=== PATIENT | female | born 1950 | race Caucasian/White ===

== ENCOUNTER 2018-02-21 09:20 | Outpatient (CLI) | payer MEDICARE, BC, SELFPAY ==
[2018-02-21 11:06] LABS: Abs Immature Grans 0.01 k/cumm (0.0-0.09); Absolute Basophil Count 0.03 k/cumm (0.0-0.2); Absolute Eosinophil Count 0.14 k/cumm (0.0-0.7); Absolute Lymphocyte Count 2.48 k/cumm (1.2-3.4); Absolute Monocyte Count 0.56 k/cumm (0.11-0.7); Absolute Neutrophil Count 3.13 k/cumm (1.2-6.7); Basophils % 0.5; Eosinophils % 2.2; Immature Grans % 0.2; Lymphocytes % 39.1; Mean Corp. HGB Concentration 33.3 g/dL (32.0-36.0); Mean Corpuscular Hemoglobin 30.4 pg (27.0-33.0); Mean Corpuscular Volume 91.1 fL (80-95); Mean Platelet Volume 9.4 fL (8.0-11.0); Monocytes % 8.8; Neutrophils % 49.2; Platelet Count 205 x1000/uL (130-400); RBC 4.61 m/cumm (4.00-5.20); RBC Distribution Width 13.2 % (11.7-14.6); White Blood Cell Count 6.35 k/cumm (4.4-10.8)
== END 2018-02-21 09:40 ==
PROVIDERS: PCP Internal Medicine; Visit Provider Internal Medicine
DX: R10.9 Unspecified abdominal pain (principal)
CPT/HCPCS: 36415; 85025

== ENCOUNTER 2018-03-12 11:44 | Emergency (ER) | payer MEDICARE, BC, SELFPAY ==
[2018-03-12 11:52] VITALS: BP 130/64; PULSE 54; RESP 16; TEMP 37.1; O2SAT 96
--- NOTE | 2018-03-12 12:00 | DI.COMBO_ITS ---
SYMPTOM/DIAGNOSIS: TRAUMA, FELL, PAIN, SWELLING, HIT HEAD NONCONTRAST HEAD CT: No priors for comparison. The ventricles and sulci are consistent with the patient's age. There are areas of decreased attenuation in the white matter likely reflecting small vessel ischemic disease. No intracranial hemorrhage, infarct, midline shift or mass effect is identified. The ventricles are intact. The basilar cisterns are patent. No evidence of a calvarial fracture is seen. The visualized paranasal sinuses are clear. The mastoid air cells are well pneumatized. IMPRESSION: No acute intracranial process. CERVICAL SPINE CT: Multiple contiguous axial images of the cervical spine were obtained. Sagittal and coronal reformatted images were evaluated on the Siem[employer] work station. There are no priors for comparison. There is reversal of the normal cervical lordosis present. There is grade I spondylolisthesis of C 3 on C 4 and and C 4 on C 5. No acute fractures or subluxations are seen. Moderate degenerative changes are present throughout the cervical spine, particularly at C 4-5 and C 6 -7. 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 Multi level central spinal canal neural foraminal stenosis is seen. The prevertebral soft tissues are unremarkable. The bones are osteopenic. IMPRESSION: No acute fracture or subluxation in the cervical spine. Multi level cervical spondylosis. RIGHT KNEE: Four views. Comparison is made with 10/27/12. In the interim, the patient has had a right total knee replacement. The orthopedic hardware appears in good position. No acute fracture or dislocation is seen. Dystrophic calcifications are seen in the suprapatellar region. The soft tissues are otherwise unremarkable. IMPRESSION: No acute fracture or dislocation. Stable right TKR.
--- NOTE | 2018-03-12 12:02 | W.ED.GENAD ---
Discharge Plan Disposition Patient Disposition: HOME Condition: Fair Discharge Details Chief Complaint: Trauma Clinical Impression: Contusion of knee, Head injury Reason For Visit: fall/ hit head ,right knee Primary Care Provider: Angie Browne ED Provider: Mindy Velez Home Meds and New Rx's Prescriptions: Continue losartan 25 mg tablet 25 mg PO DAILY Qty: 90 RF: 0 acetaminophen 500 mg tablet 1,000 mg PO TID PRNRF: 0 aspirin 325 mg tablet 325 mg PO DAILY RF: 0 atorvastatin 40 mg tablet 40 mg PO HS RF: 0 cholecalciferol (vitamin D3) 1,000 unit capsule 1,000 unit PO DAILY RF: 0 duloxetine 60 mg capsule,delayed release(DR/EC) 60 mg PO DAILY RF: 0 guanfacine 1 mg tablet 1 mg PO HS PRNRF: 0 lamotrigine 200 mg tablet 200 mg PO .AM RF: 0 lamotrigine 200 mg tablet 100 mg PO HS RF: 0 levothyroxine 75 mcg tablet 75 mcg PO DAILY RF: 0 losartan 25 mg tablet 25 mg PO DAILY RF: 0 metoprolol tartrate 25 mg tablet 25 mg PO BID RF: 0 omeprazole 40 mg capsule,delayed release(DR/EC) 40 mg PO .AM RF: 0 [id number]-Am-tlxj-minerals [Women's One Daily] 1 EACH tablet 1 ea PO DAILY RF: 0 naproxen sodium [Aleve] 220 mg Capsule 1 tab PO PRN PRNRF: 0 No Action BiPAP RF: 0 Discharge Instructions Instructions: Head Injury (ED), Contusion in Adults (ED) Additional Instructions: Encourage rest, ice, elevation. Tylenol and/or ibuprofen as needed for discomfort. Please continue with Jad wrap to help with swelling. If your pain persist over the next week, please follow-up with Dr. Hfofman. In regard to your headache, please use Tylenol and/or ibuprofen as needed for discomfort. However, if you develop visual changes, vomiting, confusion, altered mental status, increased pain or other new/worsening symptoms please seek care urgently once again. Please follow up with primary care as needed if pain persists over the next week. Referrals: Jayant Vasques [ NON-[facility] STAFF PHYSICIAN] - Angie Bronwe MD [Primary Care Provider] - Medical Decision Making Patient is 67-year-old female presents today, accompanied by friend, with chief complaint of head injury and right knee pain. She reports that prior to arrival, she was walking her dog when the dog pulled forward. Landed directly on her right knee. Patient has notable ecchymosis and soft tissue swelling of the prepatellar area. Full range of motion, normal straight leg raise. Unable to palpate any deformity. She has fairly diffuse discomfort of the joint line but she reports this is typical and is unchanged since TKA. Patient had TKA approximately 3 years ago. Reports that she did heal well from this. Is not had continued discomfort. Also endorses head injury. Reports that she fell forward and struck the anterior aspect of her head. Denies any loss of consciousness. No visual change. No nausea or vomiting. States that her pain at this time is a 7 out of 10. Reports that the pain in the anterior aspect of her forehead radiates around and down the cervical spine. She does have good range of motion of the cervical spine although she does endorse some discomfort with full extension of the neck. Neurologic exam is intact. Patient is declining any analgesics. Patient has history of osteoarthritis, SARA, mitral valve regurgitation, memory loss, hypothyroidism, hyperlipidemia, GERD, hypertension, depression, arteriosclerotic cardiovascular disease. Patient does take aspirin daily. She is not anticoagulated. Obtain CT of the patient's head and neck given the severity of her discomfort and mechanism of injury. We will also obtain x-ray of the right knee. X-ray of the left knee was reviewed by radiologist. They do note the total knee arthroplasty in satisfactory position and alignment. No acute fracture identified. Some calcifications in the suprapatellar soft tissues likely associate with surgery. They do not know any acute abnormalities per CT of the head reviewed by radiologist. Patchy lucencies in the white matter are nonspecific but most suggestive of chronic microvascular ischemic disease. There is no evidence of large acute cortical infarct. No intracranial hemorrhage or extra-axial collection identified. No significant intracranial mass-effect. Ventricles and sulci are mildly prominent, in concordance with mild global atrophy. Bones are normal, no acute fracture. The sinuses and air cells are clear. Mastoid air cells are normal. Soft tissues are unremarkable. Vasculature is noted for intracranial atherosclerotic vascular calcifications. Advised overall no evidence for acute intracranial abnormality CT of the cervical spine reviewed by radiologist. Vertebral body heights are intact. Cervical lordotic curve is preserved. Grade 1 spondylolisthesis at C2-C3 and C4-C5. Alignment is otherwise maintained. Bones appear osteopenic. 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 There appear to be prominent nutrient foramina, rather than fractures through the bilateral C7 transverse process. No acute fracture is identified. The prevertebral soft tissues are not significantly swollen. Visualized lung apices are essentially clear, no apical pneumothorax is identified. There is multilevel spondylosis with very notable osteophytic encroachment of several neural foramina. CT is not optimal for the evaluation of disc, neural foramina or spinal cord canal. No significant spinal stenosis is evident. Chronic productive changes are present about the dens. Median sternotomy wires are present. Overall impression is no acute fracture dislocation. Apparent osteopenia. Spondylosis without significant spinal stenosis events. Discs are intact. The of the cord could be better evaluated by means of MRI if clinically applicable At this point, patient is without neurologic deficit. Range of motion is intact. No pain with palpation. I do not feel that MRI is warranted at this time. However, we did discuss the chronic changes in the next advise follow-up with primary care if pain persists. We discussed new/worsening symptoms when to seek care urgently once again, particularly with regard to the head and neck injury. In regard to the knee discomfort, advised this likely contusion. We did discuss is also over the area of a bursa. I did advise that she follow-up with her orthopedic surgeon if pain persists. She was seek care with urgently once again with any new or worsening symptoms. All of her questions and concerns were addressed and she is in agreement this plan . [facility] Mode of arrival: ambulatory. Date/Time Provider Initiated Documentation: 03/12/18 11:48. Limitations to Documentation: no limitations. Information obtained by: patient. History of Present Illness 67 year old F presents to the emergency department with the chief complaint of right knee pain and headache, described as moderate, with intensity rated at 7. Quality is described as aching, and is localized to the head, neck, right and lower extremity. Patient reports no radiation. Patient started experiencing this minute(s) and it has been constant. Immobilization improves symptom(s), Movement worsens symptoms . Patient notes headaches and rash (ecchymosis to the right anterior knee); denies confusion, chest pain, cough, fever/chills, nausea/vomiting and shortness of breath. Patient did receive the following treatments prior to arrival, none Related Data Home Medications Medication Instructions Recorded Confirmed [id number] 1 ea PO DAILY 07/16/12 03/12/18 [Women's One Daily] Bipap 07/26/14 02/21/18 acetaminophen 500 mg tablet 1,000 mg PO TID PRN tab 12/17/17 03/12/18 aspirin 325 mg tablet 325 mg PO DAILY 12/17/17 03/12/18 atorvastatin 40 mg tablet 40 mg PO HS tab 12/17/17 03/12/18 cholecalciferol (vitamin D3) 1,000 1,000 unit PO DAILY 12/17/17 03/12/18 unit capsule duloxetine 60 mg capsule,delayed 60 mg PO DAILY 12/17/17 03/12/18 release guanfacine 1 mg tablet 1 mg PO HS PRN tab 12/17/17 03/12/18 lamotrigine 200 mg tablet 100 mg PO HS tab 12/17/17 03/12/18 lamotrigine 200 mg tablet 200 mg PO .AM tab 12/17/17 03/12/18 levothyroxine 75 mcg tablet 75 mcg PO DAILY 12/17/17 03/12/18 losartan 25 mg tablet 25 mg PO DAILY 12/17/17 03/12/18 metoprolol tartrate 25 mg tablet 25 mg PO BID 12/17/17 03/12/18 omeprazole 40 mg capsule,delayed 40 mg PO .AM cap 12/17/17 03/12/18 release losartan 25 mg tablet 25 mg PO DAILY #90 tab 12/20/17 03/12/18 naproxen sodium [Aleve] 1 tab PO PRN PRN 03/12/18 03/12/18 Previous Rx's Medication Instructions Recorded losartan 25 mg tablet 25 mg PO DAILY #90 tab 12/20/17 Allergies Allergy/AdvReac Type Severity Reaction Status Date / Time ciprofloxacin HCl Allergy Severe angioedema Unverified 03/12/18 12:11 [From Cipro] lisinopril Allergy Severe angioedema Unverified 03/12/18 12:11 modafinil [From Provigil] Allergy Intermediate increased Unverified 03/12/18 12:11 agitation,hallucinations, insomnia prednisone AdvReac Intermediate SKIN, Unverified 03/12/18 12:11 MUSCLE CRAWL General Stated Complaint: Trauma KAMRON: 3 Review of Systems Constitutional Reports as per HPI, Denies chills, Denies fever(s), Denies headache(s) and Denies weakness Eyes Denies blurry vision and Denies change in vision ENT Denies headache(s) Cardiovascular Reports as per HPI, Denies chest pain and Denies dyspnea Respiratory Reports as per HPI, Denies cough and Denies dyspnea Gastrointestinal Reports as per HPI, Denies nausea and Denies vomiting Genitourinary Denies urinary incontinence Musculoskeletal Reports as per HPI, Denies abnormal gait, Reports arthralgias, Reports joint swelling, Denies limited range of motion and Denies tingling Integumentary/Breasts Reports as per HPI, Denies rash and Reports other (ecchymosis to right knee) Neurologic Denies abnormal gait, Denies headache(s), Denies tingling and Denies weakness PFSH ASCVD (arteriosclerotic cardiovascular disease) Essential hypertension GERD (gastroesophageal reflux disease) Hypothyroidism SARA (obstructive sleep apnea) Family History Mother Heart disease Neoplasm Heart valve disorder Father Neoplasm Grandfather Heart disease Grandfather Diabetes Grandmother No problems noted. Grandmother Heart disease Daughter Heart disease Heart valve disorder Daughter Depression Sister No problems noted. Sister No problems noted. Brother No problems noted. Brother Essential hypertension Hepatitis C Brother No problems noted. Son Depression ANKLE REPAIR (~01/2009) Colonoscopy - MAC (09/07/17) Ligation of fallopian tube (~1975) Meniscectomy (~2012) Replacement of total knee joint Valve Replacement Family History Mother Heart disease Neoplasm Heart valve disorder Father Neoplasm Grandfather Heart disease Grandfather Diabetes Grandmother No problems noted. Grandmother Heart disease Daughter Heart disease Heart valve disorder Daughter Depression Sister No problems noted. Sister No problems noted. Brother No problems noted. Brother Essential hypertension Hepatitis C Brother No problems noted. 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 pets and animals: Yes pets and animals: cat(s) and dog(s) frequency: 1-2 times per week duration: 15-30 minutes/day Smoking/Tobacco Use Status: Former Tobacco Use quit date: 04/12/69 alcohol intake: never substance use type: does not use cliff/sabianism: Jehovah'S Witness special cliff needs: No Surgical History ANKLE REPAIR (~01/2009) Colonoscopy - MAC (09/07/17) Ligation of fallopian tube (~1975) Meniscectomy (~2012) Replacement of total knee joint Valve Replacement Social History household members: other details: 2 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 pets and animals: Yes pets and animals: cat(s) and dog(s) frequency: 1-2 times per week duration: 15-30 minutes/day Smoking/Tobacco Use Status: Former Tobacco Use quit date: 04/12/69 alcohol intake: never substance use type: does not use cliff/sabianism: Jehovah'[employer] Witness special cliff needs: No Exam Const General: cooperative, healthy appearing, comfortable, no acute distress, well developed and well groomed Nutritional Appearance: well nourished and overweight Orientation: alert, awake and oriented x3 HENMT Head: normal to inspection, no palpable skull fracture, normocephalic and atraumatic Ears: hearing grossly normal bilaterally, external ears normal and TM's normal bilaterally General nose exam: external nose normal Face and sinus: normal facial exam and face symmetric Mouth: oral mucosae normal, lip normal and tongue normal Eyes General: appearance normal, both eyes and all related structures Alignment and Position: alignment normal Periorbital: periorbital findings normal Eyelids: eyelids normal Conjunctivae: conjunctivae normal Pupils: PERRL and normal by confrontation EOM: EOM intact bilaterally Neck Neck: normal visual inspection, full ROM, no lymphadenopathy, no meningeal signs, trachea midline and supple Chest Chest: normal inspection of the chest, normal palpation of entire chest wall, no crepitus and no localized rib tenderness Resp Effort & Inspection: normal respiratory effort, able to speak in complete sentences and no respiratory distress Auscultation: clear to auscultation bilaterally, no rales, no rhonchi and no wheezes Cardio Rate: regular rate Rhythm: regular rhythm Heart Sounds: S1 normal and S2 normal GI Inspection: normal to inspection Palpation: soft, no hepatosplenomegaly, no guarding, not rigid and nontender Back/Spine/Pelvis Cervical Spine: normal cervical lordosis, cervical ROM normal and cervical spinal tenderness (no pain elicited with palpation but patient does indicate midline as area of pain. Full ROM. Discomfort with full extension) Thoracic/Lumbar Spine: thoracic and lumbar spine normal to inspection and thoraco-lumbar ROM normal Pelvis: no pain with anterior-posterior compression and no pain with lateral compression Skin General skin exam: ecchymosis (over the anterior right knee. Focal area of swelling 7cm x 5cm. ) Trauma: no abrasions and no lacerations Neuro General: alert, awake, oriented x3, gait normal, tone normal, moves all extremities, no meningeal signs, no focal motor deficits and CN's II-XI intact bilaterally Cognition: normal cognition Speech: speech normal Gait: normal gait Motor: muscle tone normal throughout, strength 5/5 throughout, no pronator drift, no movement abnormalities noted and no fasciculations Sensory Exam: no sensory deficits noted Coordination: [id number] test normal, [id number] test normal and rapid alternating movement UE normal Extrem General: no clubbing, cyanosis or edema, no pedal edema, no calf tenderness and normal gait Right lower extremity: full ROM, normal capillary refill, no joint enlargement (soft tissue swelling as above, no effusion palpated) and knee (midline incision, appears to have healed well) Details: tenderness Location: of the pre-patellar area, swelling Location: of the pre-patellar area, normal ROM and knee ligament exam normal; no crepitus; abnormal to inspection (ecchymosis and swelling as above) Psych Appearance: grossly normal and well kempt Mental Status: mental status grossly normal Speech and Movement: speech and movement normal Course Vital Signs Temperature 37.1 C 03/12/18 11:52 Pulse 54 L 03/12/18 11:52 Respiratory Rate 16 03/12/18 11:52 Blood Pressure 130/64 03/12/18 11:52 Pulse Oximetry 96 03/12/18 11:52 Temperature 37.1 C 03/12/18 11:52 Pulse 54 L 03/12/18 11:52 Respiratory Rate 16 03/12/18 11:52 Blood Pressure 130/64 03/12/18 11:52 Pulse Oximetry 96 03/12/18 11:52 Oxygen Delivery Method Room Air 03/12/18 11:52 Oxygen Flow Rate 0 03/12/18 11:52 Pain Level 8 03/12/18 11:52
--- NOTE | 2018-03-12 12:06 | ED.GENADUL_ITS ---
Discharge Plan Disposition Patient Disposition: HOME Condition: Fair Discharge Details Chief Complaint: Trauma Clinical Impression: Contusion of knee, Head injury Reason For Visit: fall/ hit head ,right knee Primary Care Provider: Angie Browne ED Provider: Mindy Velez Home Meds and New Rx's Prescriptions: Continue losartan 25 mg tablet 25 mg PO DAILY Qty: 90 RF: 0 acetaminophen 500 mg tablet 1,000 mg PO TID PRNRF: 0 aspirin 325 mg tablet 325 mg PO DAILY RF: 0 atorvastatin 40 mg tablet 40 mg PO HS RF: 0 cholecalciferol (vitamin D3) 1,000 unit capsule 1,000 unit PO DAILY RF: 0 duloxetine 60 mg capsule,delayed release(DR/EC) 60 mg PO DAILY RF: 0 guanfacine 1 mg tablet 1 mg PO HS PRNRF: 0 lamotrigine 200 mg tablet 200 mg PO .AM RF: 0 lamotrigine 200 mg tablet 100 mg PO HS RF: 0 levothyroxine 75 mcg tablet 75 mcg PO DAILY RF: 0 losartan 25 mg tablet 25 mg PO DAILY RF: 0 metoprolol tartrate 25 mg tablet 25 mg PO BID RF: 0 omeprazole 40 mg capsule,delayed release(DR/EC) 40 mg PO .AM RF: 0 rfwskbzvspwp-Hc-irws-minerals [Women's One Daily] 1 EACH tablet 1 ea PO DAILY RF: 0 naproxen sodium [Aleve] 220 mg Capsule 1 tab PO PRN PRNRF: 0 No Action BiPAP RF: 0 Discharge Instructions Instructions: Head Injury (ED), Contusion in Adults (ED) Additional Instructions: Encourage rest, ice, elevation. Tylenol and/or ibuprofen as needed for discomfort. Please continue with Jad wrap to help with swelling. If your pain persist over the next week, please follow-up with Dr. Hoffman. In regard to your headache, please use Tylenol and/or ibuprofen as needed for discomfort. However, if you develop visual changes, vomiting, confusion, altered mental status, increased pain or other new/worsening symptoms please seek care urgently once again. Please follow up with primary care as needed if pain persists over the next week. Referrals: Jayant Vaqsues [ NON-[facility] STAFF PHYSICIAN] - Angie Browne MD [Primary Care Provider] - Medical Decision Making Patient is 67-year-old female presents today, accompanied by friend, with chief complaint of head injury and right knee pain. She reports that prior to arrival , she was walking her dog when the dog pulled forward. Landed directly on her right knee. Patient has notable ecchymosis and soft tissue swelling of the prepatellar area. Full range of motion, normal straight leg raise. Unable to palpate any deformity. She has fairly diffuse discomfort of the joint line but she reports this is typical and is unchanged since TKA. Patient had TKA approximately 3 years ago. Reports that she did heal well from this. Is not had continued discomfort. Also endorses head injury. Reports that she fell forward and struck the anterior aspect of her head. Denies any loss of consciousness. No visual change. No nausea or vomiting. States that her pain at this time is a 7 out of 10. Reports that the pain in the anterior aspect of her forehead radiates around and down the cervical spine. She does have good range of motion of the cervical spine although she does endorse some discomfort with full extension of the neck. Neurologic exam is intact. Patient is declining any analgesics. Patient has history of osteoarthritis, SARA, mitral valve regurgitation, memory loss, hypothyroidism, hyperlipidemia, GERD, hypertension, depression, arteriosclerotic cardiovascular disease. Patient does take aspirin daily. She is not anticoagulated. Obtain CT of the patient's head and neck given the severity of her discomfort and mechanism of injury. We will also obtain x-ray of the right knee. X-ray of the left knee was reviewed by radiologist. They do note the total knee arthroplasty in satisfactory position and alignment. No acute fracture identified. Some calcifications in the suprapatellar soft tissues likely associate with surgery. They do not know any acute abnormalities per CT of the head reviewed by radiologist. Patchy lucencies in the white matter are nonspecific but most suggestive of chronic microvascular ischemic disease. There is no evidence of large acute cortical infarct. No intracranial hemorrhage or extra-axial collection identified. No significant intracranial mass-effect. Ventricles and sulci are mildly prominent, in concordance with mild global atrophy. Bones are normal, no acute fracture. The sinuses and air cells are clear. Mastoid air cells are normal. Soft tissues are unremarkable. Vasculature is noted for intracranial atherosclerotic vascular calcifications. Advised overall no evidence for acute intracranial abnormality CT of the cervical spine reviewed by radiologist. Vertebral body heights are intact. Cervical lordotic curve is preserved. Grade 1 spondylolisthesis at C2- C3 and C4-C5. Alignment is otherwise maintained. Bones appear osteopenic. 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 There appear to be prominent nutrient foramina, rather than fractures through the bilateral C7 transverse process. No acute fracture is identified. The prevertebral soft tissues are not significantly swollen. Visualized lung apices are essentially clear, no apical pneumothorax is identified. There is multilevel spondylosis with very notable osteophytic encroachment of several neural foramina. CT is not optimal for the evaluation of disc, neural foramina or spinal cord canal. No significant spinal stenosis is evident. Chronic productive changes are present about the dens. Median sternotomy wires are present. Overall impression is no acute fracture dislocation. Apparent osteopenia. Spondylosis without significant spinal stenosis events. Discs are intact. The of the cord could be better evaluated by means of MRI if clinically applicable At this point, patient is without neurologic deficit. Range of motion is intact. No pain with palpation. I do not feel that MRI is warranted at this time. However, we did discuss the chronic changes in the next advise follow-up with primary care if pain persists. We discussed new/worsening symptoms when to seek care urgently once again, particularly with regard to the head and neck injury. In regard to the knee discomfort, advised this likely contusion. We did discuss is also over the area of a bursa. I did advise that she follow-up with her orthopedic surgeon if pain persists. She was seek care with urgently once again with any new or worsening symptoms. All of her questions and concerns were addressed and she is in agreement this plan . [facility] Mode of arrival: ambulatory . Date/Time Provider Initiated Documentation: 03/12/18 11:48 . Limitations to Documentation: no limitations . Information obtained by: patient . History of Present Illness 67 year old F presents to the emergency department with the chief complaint of right knee pain and headache, described as moderate, with intensity rated at 7. Quality is described as aching, and is localized to the head, neck, right and lower extremity. Patient reports no radiation. Patient started experiencing this minute(s) and it has been constant. Immobilization improves symptom(s), Movement worsens symptoms . Patient notes headaches and rash (ecchymosis to the right anterior knee); denies confusion, chest pain, cough, fever/chills, nausea/vomiting and shortness of breath. Patient did receive the following treatments prior to arrival, none Related Data Home Medications Medication Instructions Recorded Confirmed trtyulztrwbo-[id number]-lpna-minerals 1 ea PO DAILY 07/16/12 03/12/18 [Women's One Daily] Bipap 07/26/14 02/21/18 acetaminophen 500 mg tablet 1,000 mg PO TID PRN tab 12/17/17 03/12/18 aspirin 325 mg tablet 325 mg PO DAILY 12/17/17 03/12/18 atorvastatin 40 mg tablet 40 mg PO HS tab 12/17/17 03/12/18 cholecalciferol (vitamin D3) 1,000 1,000 unit PO DAILY 12/17/17 03/12/18 unit capsule duloxetine 60 mg capsule,delayed 60 mg PO DAILY 12/17/17 03/12/18 release guanfacine 1 mg tablet 1 mg PO HS PRN tab 12/17/17 03/12/18 lamotrigine 200 mg tablet 100 mg PO HS tab 12/17/17 03/12/18 lamotrigine 200 mg tablet 200 mg PO .AM tab 12/17/17 03/12/18 levothyroxine 75 mcg tablet 75 mcg PO DAILY 12/17/17 03/12/18 losartan 25 mg tablet 25 mg PO DAILY 12/17/17 03/12/18 metoprolol tartrate 25 mg tablet 25 mg PO BID 12/17/17 03/12/18 omeprazole 40 mg capsule,delayed 40 mg PO .AM cap 12/17/17 03/12/18 release losartan 25 mg tablet 25 mg PO DAILY #90 tab 12/20/17 03/12/18 naproxen sodium [Aleve] 1 tab PO PRN PRN 03/12/18 03/12/18 Previous Rx's Medication Instructions Recorded losartan 25 mg tablet 25 mg PO DAILY #90 tab 12/20/17 Allergies Allergy/AdvReac Type Severity Reaction Status Date / Time ciprofloxacin HCl Allergy Severe angioedema Unverified 03/12/18 12:11 [From Cipro] lisinopril Allergy Severe angioedema Unverified 03/12/18 12:11 modafinil [From Provigil] Allergy Intermediate increased Unverified 03/12/18 12: 11 agitation,hallucinations, insomnia prednisone AdvReac Intermediate SKIN, Unverified 03/12/18 12:11 MUSCLE CRAWL General Stated Complaint: Trauma KAMRON: 3 Review of Systems Constitutional Reports as per HPI, Denies chills, Denies fever(s), Denies headache(s) and Denies weakness Eyes Denies blurry vision and Denies change in vision ENT Denies headache(s) Cardiovascular Reports as per HPI, Denies chest pain and Denies dyspnea Respiratory Reports as per HPI, Denies cough and Denies dyspnea Gastrointestinal Reports as per HPI, Denies nausea and Denies vomiting Genitourinary Denies urinary incontinence Musculoskeletal Reports as per HPI, Denies abnormal gait, Reports arthralgias, Reports joint swelling, Denies limited range of motion and Denies tingling Integumentary/Breasts Reports as per HPI, Denies rash and Reports other (ecchymosis to right knee) Neurologic Denies abnormal gait, Denies headache(s), Denies tingling and Denies weakness PFSH ASCVD (arteriosclerotic cardiovascular disease) Essential hypertension GERD (gastroesophageal reflux disease) Hypothyroidism SARA (obstructive sleep apnea) Family History Mother Heart disease Neoplasm Heart valve disorder Father Neoplasm Grandfather Heart disease Grandfather Diabetes Grandmother No problems noted. Grandmother Heart disease Daughter Heart disease Heart valve disorder Daughter Depression Sister No problems noted. Sister No problems noted. Brother No problems noted. Brother Essential hypertension Hepatitis C Brother No problems noted. Son Depression ANKLE REPAIR (~01/2009) Colonoscopy - MAC (09/07/17) Ligation of fallopian tube (~1975) Meniscectomy (~2012) Replacement of total knee joint Valve Replacement Family History Mother Heart disease Neoplasm Heart valve disorder Father Neoplasm Grandfather Heart disease Grandfather Diabetes Grandmother No problems noted. Grandmother Heart disease Daughter Heart disease Heart valve disorder Daughter Depression Sister No problems noted. Sister No problems noted. Brother No problems noted. Brother Essential hypertension Hepatitis C Brother No problems noted. 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 pets and animals: Yes pets and animals: cat(s) and dog(s) frequency: 1-2 times per week duration: 15-30 minutes/day Smoking/Tobacco Use Status: Former Tobacco Use quit date: 04/12/69 alcohol intake: never substance use type: does not use cliff/jewish: [employer] special cliff needs: No Surgical History ANKLE REPAIR (~01/2009) Colonoscopy - MAC (09/07/17) Ligation of fallopian tube (~1975) Meniscectomy (~2012) Replacement of total knee joint Valve Replacement Social History household members: other details: 2 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 pets and animals: Yes pets and animals: cat(s) and dog(s) frequency: 1-2 times per week duration: 15-30 minutes/day Smoking/Tobacco Use Status: Former Tobacco Use quit date: 04/12/69 alcohol intake: never substance use type: does not use cliff/jewish: [employer] special cliff needs: No Exam Const General: cooperative, healthy appearing, comfortable, no acute distress, well developed and well groomed Nutritional Appearance: well nourished and overweight Orientation: alert, awake and oriented x3 HENMT Head: normal to inspection, no palpable skull fracture, normocephalic and atraumatic Ears: hearing grossly normal bilaterally, external ears normal and TM's normal bilaterally General nose exam: external nose normal Face and sinus: normal facial exam and face symmetric Mouth: oral mucosae normal, lip normal and tongue normal Eyes General: appearance normal, both eyes and all related structures Alignment and Position: alignment normal Periorbital: periorbital findings normal Eyelids: eyelids normal Conjunctivae: conjunctivae normal Pupils: PERRL and normal by confrontation EOM: EOM intact bilaterally Neck Neck: normal visual inspection, full ROM, no lymphadenopathy, no meningeal signs , trachea midline and supple Chest Chest: normal inspection of the chest, normal palpation of entire chest wall, no crepitus and no localized rib tenderness Resp Effort & Inspection: normal respiratory effort, able to speak in complete sentences and no respiratory distress Auscultation: clear to auscultation bilaterally, no rales, no rhonchi and no wheezes Cardio Rate: regular rate Rhythm: regular rhythm Heart Sounds: S1 normal and S2 normal GI Inspection: normal to inspection Palpation: soft, no hepatosplenomegaly, no guarding, not rigid and nontender Back/Spine/Pelvis Cervical Spine: normal cervical lordosis, cervical ROM normal and cervical spinal tenderness (no pain elicited with palpation but patient does indicate midline as area of pain. Full ROM. Discomfort with full extension) Thoracic/Lumbar Spine: thoracic and lumbar spine normal to inspection and thoraco-lumbar ROM normal Pelvis: no pain with anterior-posterior compression and no pain with lateral compression Skin General skin exam: ecchymosis (over the anterior right knee. Focal area of swelling 7cm x 5cm. ) Trauma: no abrasions and no lacerations Neuro General: alert, awake, oriented x3, gait normal, tone normal, moves all extremities, no meningeal signs, no focal motor deficits and CN's II-XI intact bilaterally Cognition: normal cognition Speech: speech normal Gait: normal gait Motor: muscle tone normal throughout, strength 5/5 throughout, no pronator drift , no movement abnormalities noted and no fasciculations Sensory Exam: no sensory deficits noted Coordination: oiuwqw-[id number]-[id number] test normal, [id number] test normal and rapid alternating movement UE normal Extrem General: no clubbing, cyanosis or edema, no pedal edema, no calf tenderness and normal gait Right lower extremity: full ROM, normal capillary refill, no joint enlargement ( soft tissue swelling as above, no effusion palpated) and knee (midline incision , appears to have healed well) Details: tenderness Location: of the pre- patellar area, swelling Location: of the pre-patellar area, normal ROM and knee ligament exam normal; no crepitus; abnormal to inspection (ecchymosis and swelling as above) Psych Appearance: grossly normal and well kempt Mental Status: mental status grossly normal Speech and Movement: speech and movement normal Course Vital Signs Temperature 37.1 C 03/12/18 11:52 Pulse 54 L 03/12/18 11:52 Respiratory Rate 16 03/12/18 11:52 Blood Pressure 130/64 03/12/18 11:52 Pulse Oximetry 96 03/12/18 11:52 Temperature 37.1 C 03/12/18 11:52 Pulse 54 L 03/12/18 11:52 Respiratory Rate 16 03/12/18 11:52 Blood Pressure 130/64 03/12/18 11:52 Pulse Oximetry 96 03/12/18 11:52 Oxygen Delivery Method Room Air 03/12/18 11:52 Oxygen Flow Rate 0 03/12/18 11:52 Pain Level 8 03/12/18 11:52
--- NOTE | 2018-03-12 12:59 | DI.VRAD_ITS ---
EXAM: CT Head Without Intravenous Contrast EXAM DATE/TIME: 03/12/2018 12:02 PM CLINICAL HISTORY: 67 years old, female; Injury or trauma; Injury history: Fall; Initial encounter; Swelling (edema); Bleeding/hemorrhage; Injury date: 03/12/2018 TECHNIQUE: Axial computed tomography images of the head/brain without intravenous contrast. All CT scans at this facility use at least one of these dose optimization techniques: automated exposure control; mA and/or kV adjustment per patient size (includes targeted exams where dose is matched to clinical indication); or iterative reconstruction. Coronal and sagittal reformatted images were created and reviewed. COMPARISON: No relevant prior studies available. FINDINGS: Brain: Patchy lucencies in the white matter are nonspecific but most suggestive of chronic microvascular ischemic disease. There is no evidence for large acute cortical infarct. No intracranial hemorrhage or extraaxial collection is identified. There is no significant intracranial mass effect. Ventricles: The ventricles and sulci are mildly prominent, in concordance with mild global atrophy. Bones/joints: Normal. No acute fracture. Sinuses: The visualized paranasal sinuses and air cells are clear. Mastoid air cells: Normal as visualized. No mastoid effusion. Soft tissues: Unremarkable. Vasculature: Intracranial atherosclerotic vascular calcifications are noted. IMPRESSION: No CT evidence for acute intracranial abnormality. EXAM: CT Cervical Spine Without Intravenous Contrast EXAM DATE/TIME: 03/12/2018 12:02 PM CLINICAL HISTORY: 67 years old, female; Injury or trauma; Injury history: Fall; Initial encounter; Swelling (edema); Bleeding/hemorrhage; Injury date: 03/12/2018 TECHNIQUE: Axial computed tomography images of the cervical spine without intravenous contrast. All CT scans at this facility use at least one of these dose optimization techniques: automated exposure control; mA and/or kV adjustment per patient size (includes targeted exams where dose is matched to clinical indication); or iterative reconstruction. Coronal and sagittal reformatted images were created and reviewed. COMPARISON: No relevant prior studies available. FINDINGS: Vertebral body heights are intact. The cervical lordotic curve is reversed. There grade 1 spondylolistheses at C2-3 and C4-5. Alignment is otherwise maintained. The bones appear osteopenic. There is partial congenital fusion across the C7-T1 disc space and facet joints. There appear to be prominent nutrient foramina, rather than fractures through the bilateral C7 transverse processes. No acute fracture is identified. The prevertebral soft tissues are not significantly swollen. The visualized lung apices are essentially clear, and no apical pneumothorax is identified. There is multilevel spondylosis with variable osteophytic encroachment of several neural foramina. CT is not optimal for the evaluation of the discs, neural foramina or spinal canal or cord. No significant spinal stenosis is evident. Chronic productive changes are present about the dens. Median sternotomy wires are present. IMPRESSION: 1. No acute fracture or dislocation identified. 2. Apparent osteopenia. 3. Spondylosis without significant spinal stenosis evident. The discs and integrity of the cord could be better evaluated by means of MRI as clinically appropriate. Dictated and Authenticated by: Mina Mcintosh MD. Ordering:MAME YO MD
--- NOTE | 2018-03-12 13:04 | DI.VRAD_ITS ---
EXAM: XR Left Knee, 4 or more Views EXAM DATE/TIME: 03/12/2018 12:02 PM CLINICAL HISTORY: 67 years old, female; Injury or trauma; Fall; Initial encounter; Swelling (edema); Knee; Right; Injury date: 03/12/2018; Injury details: Swelling anteriorly; Prior surgery; Surgery date: 6+ months; Surgery type: Knee replacement TECHNIQUE: XR Left knee 4 or more views. COMPARISON: No relevant prior studies available. FINDINGS: Bones/joints: A total knee arthroplasty is present. It is in satisfactory position and alignment. No acute fracture is identified. Soft tissues: Some calcifications in the suprapatellar soft tissues likely related to the surgery. IMPRESSION: Satisfactory appearance of a total knee arthroplasty. Dictated and Authenticated by: Mina Mcintosh MD. Ordering:MAME YO MD
== END 2018-03-12 13:20 | disposition home or self-care (01) ==
LOC: ER 13:56
PROVIDERS: Emergency Provider Physician Assistant; PCP Internal Medicine
DX: R51 Headache (principal); S80.01XA Contusion of right knee, initial encounter; W01.0XXA Fall on same level from slipping, tripping and stumbling without subsequent striking against object, initial encounter; Z96.651 Presence of right artificial knee joint; I10 Essential (primary) hypertension
CPT/HCPCS: 99284; 70450; 72125; 73564

== ENCOUNTER → 2018-03-15 10:57 | Outpatient (BNVA) | payer MEDICARE, BC, SELFPAY | PROVIDERS: PCP Internal Medicine; Referring Provider Internal Medicine; Visit Provider Surgery | DX: R10.13 Epigastric pain (principal); R14.0 Abdominal distension (gaseous); I10 Essential (primary) hypertension | CPT/HCPCS: 99213 ==

== ENCOUNTER 2018-03-22 09:27 | Day surgery (SDC) | payer MEDICARE, BC, SELFPAY ==
[2018-03-22 09:50] VITALS: BP 143/68; PULSE 56; RESP 16; TEMP 36.6; O2SAT 97
--- NOTE | 2018-03-22 10:12 | W.PM.ENDDOP ---
Date of service: 03/22/18 Time of Service: 11:41 Endoscopy Report DATE OF PROCEDURE: 03/22/18 PRE-OP DIAGNOSIS: Abdominal pain, hx of gastritis and reflux POST-OP DIAGNOSIS: other (duodenitis, gastritis, gastric polyps) PROCEDURE: EGD with biopsies SURGEON: Rae Mcnally ANESTHESIA: MAC (Yaz Paz, [employer]/ ASA 2) ESTIMATED BLOOD LOSS: 3 PATHOLOGY: other (duodenal bx, gastric polyps bx, antrum bx) COMPLICATIONS: None DISPOSITION: same day INDICATIONS: Mrs. Espinosa is a pleasant 67 year old female who was seen in the office for some abdominal pain. She has a history of reflux and is on Omeprazole 40 mg daily. EGD was recommended. Risks, benefits and complications were reviewed and she wished to proceed. No guarantees were given or implied. FINDINGS: Inflammation of the duodenum and stomach. Multiple gastric polyps PROCEDURE DESCRIPTION: After informed consent was obtained the patient was take to the procedure room and placed in a supine position. Monitors were applied and a time out was done. The patients name, date of , procedure type, allergies to medications and metal in their body was reviewed. A bite block was placed and the patient was sedated. Once sedated and comfortable the gastroscope was advanced through the oropharynx which was grossly normal into the esophagus. The proximal and mid-esophagus were normal. In the distal esophagus there was no inflammation noted. The scope was advanced into the stomach and through the pylorus into the 3rd portion of the duodenum. The duodenum was noted to have some inflammation. No ulcer were noted. Biopsies were done. The scope was retracted back into the stomach and biopsies were done to rule out H. pylori. There were no ulcers. The scope was retroflexed. The cardia and fundus were noted to be scattered with multiple polyps. There was no hiatal hernia noted. The scope was retracted back into the esophagus. The Z line was regular. The GE junction was at 38 cm. The scope was removed and the patient was woken up and taken back to [facility] in stable condition. Follow up: I will call with results of the biopsies. I will add Zanatc 300 mg at night and Carafate 1 gm QID for 2 weeks
[2018-03-22] MEDS: Lactated Ringers 1,000 ML 80 ML IV (10:14)
--- NOTE | 2018-03-22 10:15 | PDOC.DSDIS_ITS ---
Discharge Plan Disposition Patient Disposition: HOME Condition: Good Discharge Details Reason For Visit: Abdominal pain Attending Provider: Rae Mcnally Primary Care Provider: Angie Browne Home Meds and New Rx's Prescriptions: New cimetidine 300 mg tablet 300 mg PO HS Qty: 30 RF: 2 sucralfate 1 gram tablet 1 gm PO QID Qty: 60 RF: 0 Continue acetaminophen 500 mg tablet 200 mg PO TID PRNRF: 0 aspirin 325 mg tablet 325 mg PO DAILY RF: 0 atorvastatin 40 mg tablet 40 mg PO HS RF: 0 cholecalciferol (vitamin D3) 1,000 unit capsule 1,000 unit PO DAILY RF: 0 duloxetine 60 mg capsule,delayed release(DR/EC) 60 mg PO DAILY RF: 0 guanfacine 1 mg tablet 0.5 tab PO HS PRNRF: 0 lamotrigine 200 mg tablet 100 mg PO HS RF: 0 levothyroxine 75 mcg tablet 75 mcg PO DAILY RF: 0 losartan 25 mg tablet 25 mg PO DAILY RF: 0 metoprolol tartrate 25 mg tablet 25 mg PO BID RF: 0 omeprazole 40 mg capsule,delayed release(DR/EC) 40 mg PO .AM RF: 0 msmeolmsizoz-Pc-nvij-minerals [Women's One Daily] 1 EACH tablet 1 ea PO DAILY RF: 0 BiPAP RF: 0 naproxen sodium [Aleve] 220 mg Capsule 1 tab PO PRN PRNRF: 0 Discharge Instructions Instructions: Upper Endoscopy (DC), Duodenitis (DC), Gastric Polyps (DC), Gastritis (DC), Diet for Stomach Ulcers and Gastritis (GEN) Additional Instructions: Findings: Inflammation of the stomach and duodenum Follow up: Follow up in 2 weeks Please call if you develop: fevers >101.5 Nausea or Vomiting Abdominal pain that is not transient DAY SURGERY UNIT POST COLONOSCOPY INSTRUCTIONS 1. Because there will be medication in your system for the next 24 hours, you may feel a little sleepy. Your coordination will be affected. Therefore: a. Do not drive or operate dangerous equipment for 24 hours. b. Do not drink alcohol beverages for 24 hours (not even beer). c. Plan to go home and rest for the day. 2. Generally there are no restrictions on your activity after a day or so has gone by, but you may feel a bit fatigued for a few days. 3 After you arrive home you may have a light meal and return to a normal diet as you can tolerate it without feeling sick to your stomach. 4. After surgery, you may feel pain or discomfort. This should be only transient , but if it persists please contact your doctor. 5. If there are any questions regarding the findings of your procedure, please feel free to contact your doctor. 6. If you are unable to contact your doctor with a problem, contact the hospital at [phone]. 7. Continue all your regular medications unless directed otherwise. I understand the above instructions and have no questions. Signature of Patient or Responsible Adult Escort Date/Time Name of Responsible Adult Escort Signature of Nurse Date/Time Activity:: Activity as Tolerated Diet:: low acid Discharge Orders Discharge Orders: Discharge Order (Routine); Ordered 03/22/18 Ordered By: Rae Mcnally DS: Diagnosis Discharge Diagnosis (1) H/O esophagogastroduodenoscopy: Status: Chronic (2) Gastritis and duodenitis: Status: Acute
[2018-03-22] MEDS: Lidocaine 2% Viscous 15 ML CUP (11:30)
--- NOTE | 2018-03-22 11:43 | STOM_PTH ---
PATIENT: Rosalba Espinosa LOC: [facility] U#:[id number] AGE/SX: 67/F ROOM: RE03/22/[address]: Rae Mcnally MD : [id number] BED: DIS: 03/22/2018 SPEC #: [id number] RECD: 03/22/18 13:05 STATUS: [facility] #: [id number] JAEL: 03/22/18 11:[address]: Rae Mcnally DEPT: Surgical Specimen RECD BY: Jennifer Curiel ENTERED: 03/22/18 13:07 SP TYPE: STOMACH OTHR DR: Angie Morales MD Tissues: 1 - BIOPSY BOWEL 2 - STOMACH BIOPSY 3 - STOMACH BIOPSY Procedures: GROSS AND MICRO LEVEL 4 Comments: [id number]
[2018-03-22 12:20] VITALS: BP 125/67; PULSE 55; RESP 16; TEMP 36.5; O2SAT 94
== END 2018-03-22 12:52 | disposition home or self-care (01) ==
PROVIDERS: PCP Internal Medicine; Visit Provider Surgery
PROC: 0DJ68ZZ Inspection of Stomach, Via Natural or Artificial Opening Endoscopic (ICD-10-PCS; CPT 43235; principal; 2018-03-22 11:15)
DX: R10.13 Epigastric pain (principal); K21.9 Gastro-esophageal reflux disease without esophagitis; K31.7 Polyp of stomach and duodenum; K29.80 Duodenitis without bleeding; I10 Essential (primary) hypertension
CPT/HCPCS: 43239; 88305

== ENCOUNTER → 2018-03-29 09:43 | Outpatient (BNVA) | payer MEDICARE, BC, SELFPAY | PROVIDERS: PCP Internal Medicine; Referring Provider Internal Medicine; Visit Provider Surgery | DX: R10.13 Epigastric pain (principal); Z48.815 Encounter for surgical aftercare following surgery on the digestive system; I10 Essential (primary) hypertension | CPT/HCPCS: 99213 ==

== ENCOUNTER 2018-09-19 10:54 | Outpatient (CLI) | payer MEDICARE, BC, SELFPAY ==
[2018-09-19 13:13] LABS: ALT 33 U/L (12-78); AST 21 U/L (15-37); Albumin 3.8 g/dL (3.4-5.0); Alkaline Phosphatase 118 U/L (46-116); Anion Gap 6.3 mmol/L (3-11); BUN 16 mg/dL (7-18); Bilirubin, Total 0.4 mg/dL (0.2-1.0); CO2 32.7 mmol/L (21.0-32.0); CREATININE 0.83 mg/dL (0.55-1.02); Calcium 9.3 mg/dL (8.5-10.1); Chloride 102 mmol/L (98-107); Glucose 106 mg/dL (70-100); Potassium 4.1 mmol/L (3.5-5.1); Sodium 141 mmol/L (136-145); TSH (W/Ref FT4) 1.35 uIU/mL (0.358-3.74); Total Protein 7.1 g/dL (6.4-8.2)
[2018-09-19 14:08] LABS: Iron 64 ug/dL (50-175); Total Iron Binding Capacity 297 ug/dL (250-450); Transferrin Sat 22 % (15-50)
== END 2018-09-19 11:14 ==
PROVIDERS: PCP Internal Medicine; Visit Provider Internal Medicine
DX: D64.9 Anemia, unspecified (principal); I10 Essential (primary) hypertension; E03.9 Hypothyroidism, unspecified
CPT/HCPCS: 36415; 80053; 83540; 83550; 84443

== ENCOUNTER 2018-10-24 09:54 | Emergency (ER) | payer MEDICARE, BC, SELFPAY ==
[2018-10-24] VITALS (9 sets, daily range): BP systolic 124–152; BP diastolic 61–85; PULSE 63–64; RESP 16; TEMP 36.7; O2SAT 95–96
--- NOTE | 2018-10-24 10:06 | ED.GENADUL_ITS ---
Discharge Plan Disposition Patient Disposition: HOME Condition: Stable Discharge Details Chief Complaint: HeadInjury Clinical Impression: Head injury Primary Care Provider: Angie Browne ED Provider: Meg Rees Home Meds and New Rx's Prescriptions: Continued acetaminophen 500 mg tablet 200 mg PO TID PRNRF: 0 aspirin 325 mg tablet 325 mg PO DAILY RF: 0 atorvastatin 40 mg tablet 40 mg PO HS RF: 0 cholecalciferol (vitamin D3) 1,000 unit capsule 1,000 unit PO DAILY RF: 0 duloxetine 60 mg capsule,delayed release(DR/EC) 60 mg PO DAILY RF: 0 guanfacine 1 mg tablet 0.5 tab PO HS PRNRF: 0 lamotrigine 200 mg tablet 100 mg PO HS RF: 0 levothyroxine 75 mcg tablet 75 mcg PO DAILY RF: 0 omeprazole 40 mg capsule,delayed release(DR/EC) 40 mg PO .AM RF: 0 Women's One Daily 1 EACH tablet 1 ea PO DAILY RF: 0 BiPAP RF: 0 losartan 25 mg tablet 25 mg PO DAILY Qty: 90 RF: 3 metoprolol succinate 50 mg tablet extended release 24 hr 50 mg PO DAILY Qty: 60 RF: 4 naproxen sodium [Aleve] 220 mg Capsule 1 tab PO PRN PRNRF: 0 Discharge Instructions Instructions: Concussion (ED), Head Injury (ED) Additional Instructions: Please return immediately to the emergency department if you develop any new or worsening symptoms or if you become otherwise concerned. It is extremely important that you call as soon as possible to make an appointment to be seen in follow-up for this visit by your primary care doctor. Referrals: Angie Browne MD [Primary Care Provider] - Discharge Data Discharge Date/Time-TO BE ENTERED AT DEPARTURE: 10/24/18 13:19 Medical Decision Making Rosalba Espinosa is a 67-year-old woman with history of mitral valve replacement, hyperlipidemia, hypothyroidism, GERD, coronary artery disease on aspirin who presented to the emergency department with headache and neck pain after mechanical fall against a door jam. On exam patient is well and nontoxic appearing. Mild diffuse tenderness of the C-spine. Nonfocal neurologic exam. Hematoma without skin wound to the left temporal scalp. TMs and canals normal bilaterally. Concern for acute intracranial/cervical spine trauma. Exam/history is not consistent with syncope or presyncope as etiology of fall, significant trauma to the thorax/abdomen/\extremities/facial bones. Plan for CT head and C-spine, Tylenol. CT head/C-spine negative per radiology over the phone. Patient reports that her headache has fully resolved since receiving Tylenol. C-spine cleared, Pt with full painless ROM of c-spine, no point TTP on re-examination. I did discuss concussion precautions with the patient. I also had a lengthy discussion with the patient regarding return to emergency department precautions, home care, and importance of outpatient follow-up. Patient verbalized understanding the plan was amenable. Patient was discharged home with clear plan for outpatient follow-up. All questions were answered. Medical Records Medical records reviewed: Yes I reviewed the patient's medical records. Imaging Data Radiologic Study: Attestation: I personally reviewed and interpreted this imaging study as follows: Radiologist's impression: CT BRAIN: Noncontrast. Comparison 03/12/18. The ventricles and sulci are consistent with the patient's age. There are areas of decreased attenuation in the white matter likely reflecting small vessel ischemic disease. No acute territorial infarct, hemorrhage, midline shift or mass effect is identified. The ventricles are intact. The basilar cisterns are patent. The visualized paranasal sinuses are clear as are the mastoid air cells. The calvarium is intact. IMPRESSION: No acute intracranial process. CT SCAN OF THE CERVICAL SPINE: Multiple contiguous axial images of the cervical spine were obtained. Sagittal and coronal reformatted images were evaluated on the Siemens workstation. Comparison is 03/12/18. There is stable alignment of the cervical spine. There is stable reversal of the normal cervical lordosis. Moderately severe degenerative changes are present throughout the cervical spine particularly at the articulation of the first and second vertebral body. No acute fractures or subluxations are present. The prevertebral soft tissues are unremarkable. The bones appear osteopenic. The lung apices are clear. IMPRESSION: No acute fractures or subluxations in the cervical spine. The findings were discussed with the emergency department on the date of the examination. HPI General Mode of arrival: ambulatory . Date/Time Provider Initiated Documentation: 10/24/18 10:06 . Limitations to Documentation: no limitations . Information obtained by: patient, family, RN notes reviewed and old records reviewed . HPI Narrative: Rosalba Espinosa is a 67 y/o woman with history of mitral valve replacement, hyperlipidemia, hypothyroidism, GERD, hypertension, coronary artery disease taking aspirin presenting to the emergency department with head injury. Patient is accompanied by her son who also provides a history. Patient reports that she was at home, when she tripped and fell forward, hitting the left side of her head against a door jam. She did not fall to the ground. Patient reports that she had no loss of consciousness and remembers the event in its entirety. Patient reports that she had no preceding symptoms, including palpitations/chest pain/shortness of breath. Patient states emphatically that she tripped causing the fall. She and her son reports that she has had frequent issues with tripping and falling in the past, and this is not unusual for her. Patient currently reports headache and some pain in her neck. She denies any other pain, numbness/weakness the extremities, skin wound, other injury, vomiting. Related Data Home Medications Medication Instructions Recorded Confirmed Women's One Daily 1 ea PO DAILY 07/16/12 11/02/18 Bipap 07/26/14 11/02/18 acetaminophen 500 mg tablet 200 mg PO TID PRN tab 12/17/17 11/02/18 aspirin 325 mg tablet 325 mg PO DAILY 12/17/17 11/02/18 atorvastatin 40 mg tablet 40 mg PO HS tab 12/17/17 11/02/18 cholecalciferol (vitamin D3) 1,000 1,000 unit PO DAILY 12/17/17 11/02/18 unit capsule duloxetine 60 mg capsule,delayed 60 mg PO DAILY 12/17/17 11/02/18 release guanfacine 1 mg tablet 0.5 tab PO HS PRN tab 12/17/17 11/02/18 lamotrigine 200 mg tablet 100 mg PO HS tab 12/17/17 11/02/18 levothyroxine 75 mcg tablet 75 mcg PO DAILY 12/17/17 11/02/18 omeprazole 40 mg capsule,delayed 40 mg PO .AM cap 12/17/17 11/02/18 release naproxen sodium [Aleve] 1 tab PO PRN PRN 03/12/18 11/02/18 losartan 25 mg tablet 25 mg PO DAILY #90 tab 04/08/18 11/02/18 metoprolol succinate 50 mg 50 mg PO DAILY #60 tab 06/07/18 11/02/18 tablet,extended release 24 hr Previous Rx's Medication Instructions Recorded losartan 25 mg tablet 25 mg PO DAILY #90 tab 04/08/18 metoprolol succinate 50 mg 50 mg PO DAILY #60 tab 06/07/18 tablet,extended release 24 hr Allergies Allergy/AdvReac Type Severity Reaction Status Date / Time ciprofloxacin HCl Allergy Severe angioedema Unverified 11/02/18 08:50 [From Cipro] lisinopril Allergy Severe angioedema Unverified 11/02/18 08:50 modafinil [From Provigil] AdvReac Intermediate increased Unverified 11/02/18 08:52 agitation,hallucinations, insomnia prednisone AdvReac Intermediate SKIN, Unverified 11/02/18 08:50 MUSCLE CRAWL General Stated Complaint: HeadInjury KAMRON: 4 Review of Systems Review of Systems Constitutional: denies fevers Eyes: denies eye pain ENT: denies facial pain, dental pain, sore throat Cardiovascular: denies chest pain, edema, palpitations Respiratory: denies SOB, cough GI: denies abdominal pain, vomiting, diarrhea : denies flank pain MSK: reports neck pain, denies back pain, arthralgias, myalgias Skin: denies rash Neuro: reports headache, denies numbness, weakness PFSH Medical History Anemia (Chronic) ASCVD (arteriosclerotic cardiovascular disease) Essential hypertension GERD (gastroesophageal reflux disease) Hypothyroidism SARA (obstructive sleep apnea) Surgical History (Updated 09/14/18 @ 08:48 by Ferdinand Barajas) ANKLE REPAIR (~01/2009) Colonoscopy - MAC (09/07/17) Ligation of fallopian tube (~1975) Meniscectomy (~2012) Replacement of total knee joint Valve Replacement Social History Smoking/Tobacco Use Status: Former Tobacco Use Quit Date: 04/12/69 Alcohol Intake: never Drug use: Never Substance use type: does not use Household members: other Details: 2 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 Pets and animals: Yes Pets and animals: cat(s) and dog(s) Duration: 15-30 minutes/day Frequency: 1-2 times per week Trina/Pentecostal: Sikh Special trina needs: No Do you feel safe at home: Yes Do you feel safe in your relationship?: Yes Exam Narrative Exam Narrative: Constitutional: well and [id number], pleasant, conversing normally HENT: head atraumatic/normocephalic/normal inspection, mucous membranes moist Eyes: conjunctiva normal, sclera normal, pupils 3mm b/l ERRLA, normal EOM Neck: no stridor, normal ROM, trachea midline, mild diffuse cervical spinal and paraspinal TTP without focality, no crepitus or deformity Chest: normal inspection Resp: normal work of breathing, LCTAB Cardio: normal rate, normal rhythm GI: abdomen soft, non-tender, non-distended Back: normal inspection, no rash Skin: warm, dry, normal color, no rash Neuro: alert, not altered, claim analyst 2-12 intact, motor 5/5 throughout, normal tone Ext: no edema Psych: normal mood, normal affect, normal behavior Course Vital Signs Temperature 36.7 C 10/24/18 09:56 Pulse 64 10/24/18 09:56 Respiratory Rate 16 10/24/18 09:56 Blood Pressure 152/84 H 10/24/18 09:56 Pulse Oximetry 95 10/24/18 09:56 Temperature 36.7 C 10/24/18 09:56 Temperature Source Temporal Artery Scan 10/24/18 09:56 Pulse 64 10/24/18 09:56 Respiratory Rate 16 10/24/18 09:56 Respiratory Effort Non-Labored 10/24/18 09:58 Blood Pressure 152/84 H 10/24/18 09:56 Blood Pressure Position Sitting 10/24/18 09:56 Pulse Oximetry 95 10/24/18 09:56 Oxygen Delivery Method Room Air 10/24/18 09:56 Oxygen Flow Rate 0 10/24/18 09:56 Pain Level 7 10/24/18 09:56
[2018-10-24] MEDS: Acetaminophen 500 MG TAB 1000 MG PO (11:36)
--- NOTE | 2018-10-24 12:07 | DI.CT_ITS ---
SYMPTOMS/DIAGNOSIS: TRAUMA, HEADACHE CT BRAIN: Noncontrast. Comparison 03/12/18. The ventricles and sulci are consistent with the patient's age. There are areas of decreased attenuation in the white matter likely reflecting small vessel ischemic disease. No acute territorial infarct, hemorrhage, midline shift or mass effect is identified. The ventricles are intact. The basilar cisterns are patent. The visualized paranasal sinuses are clear as are the mastoid air cells. The calvarium is intact. IMPRESSION: No acute intracranial process. CT SCAN OF THE CERVICAL SPINE: Multiple contiguous axial images of the cervical spine were obtained. Sagittal and coronal reformatted images were evaluated on the Siemens workstation. Comparison is 03/12/18. There is stable alignment of the cervical spine. There is stable reversal of the normal cervical lordosis. Moderately severe degenerative changes are present throughout the cervical spine particularly at the articulation of the first and second vertebral body. No acute fractures or subluxations are present. The prevertebral soft tissues are unremarkable. The bones appear osteopenic. The lung apices are clear. IMPRESSION: No acute fractures or subluxations in the cervical spine. The findings were discussed with the emergency department on the date of the examination.
== END 2018-10-24 13:19 | disposition home or self-care (01) ==
PROVIDERS: Emergency Provider Student in an Organized Health Care Education/Training Program; PCP Internal Medicine
DX: M54.2 Cervicalgia; S00.03XA Contusion of scalp, initial encounter; W01.198A Fall on same level from slipping, tripping and stumbling with subsequent striking against other object, initial encounter; I10 Essential (primary) hypertension
CPT/HCPCS: 99284; 70450; 72125

== ENCOUNTER 2019-12-05 22:05 | Outpatient (REF) | payer MEDICARE, BC, SELFPAY ==
[2019-12-05 21:06] LABS: CREATININE 0.91 mg/dL (0.55-1.02); Calculated LDL 87 mg/dL (<100); Cholesterol 176 mg/dL (<200); HDL Cholesterol 44 mg/dL (40-60); Potassium 4.1 mmol/L (3.5-5.1); TSH 1.57 uIU/mL (0.36-3.74); Triglyceride 227 mg/dL (<150)
== END 2019-12-05 22:25 ==
LOC: NCHCN 22:05
PROVIDERS: PCP Nurse Practitioner; Visit Provider Nurse Practitioner
DX: E03.9 Hypothyroidism, unspecified (principal); I10 Essential (primary) hypertension; I25.10 Atherosclerotic heart disease of native coronary artery without angina pectoris; F32.9 Major depressive disorder, single episode, unspecified
CPT/HCPCS: 80061; 82565; 84132; 84443

== ENCOUNTER 2020-03-14 09:04 | Outpatient (CLI) | payer MEDICARE, BC, SELFPAY ==
--- NOTE | 2020-03-14 08:30 | DI.RAD_ITS ---
EXAM: XR SHOULDER LT COMPLETE 2+V CLINICAL HISTORY: eval L shoudler pain. TECHNIQUE: 2D digital imaging was performed. COMPARISON: No exams were available for comparison FINDINGS: There is no evidence of fracture nor dislocation no abnormal soft tissue calcifications. No os acrom iale. No osseous lesions. No joint space narrowing. Sternotomy wires incidentally noted. IMPRESSION: No significant radiographic findings in the left shoulder. DATA REPOSITORY: RADIATION DOSE DELIVERED:
== END 2020-03-14 09:24 ==
PROVIDERS: PCP Nurse Practitioner; Referring Provider Physical Therapist; Visit Provider Student in an Organized Health Care Education/Training Program
DX: M25.512 Pain in left shoulder (principal); M75.82 Other shoulder lesions, left shoulder
CPT/HCPCS: 99214; 73030

== ENCOUNTER 2020-03-27 00:25 | Outpatient (CLI) | payer MEDICARE, BC, SELFPAY ==
--- NOTE | 2020-03-27 08:00 | DI.MRI_ITS ---
EXAM: MR UPPER JOINT LT WO CLINICAL HISTORY: LT ROTATOR CUFF TEAR,SHOULDER PAIN,M75.102 TECHNIQUE: Multiplanar multisequence MRI of the shoulder was performed. COMPARISON: MR MRI R UPPER JOINT WO CONT from 10/03/2015 CR XR SHOULDER LT COMPLETE 2+V from 03/14/2020 FINDINGS: MARROW:There is no evidence of fracture, Hill-Sachs deformity, nor ominous osseous lesions. ROTATOR CUFF MECHANISM: AC JOINT/ACROMIUM: There are minimal degenerative changes in the acromioclavicular joint. Minimal im pingement at this level. No downgoing osteophytes. Mildly downsloping acromion.. There is no evidence of os acromiale. Supraspinatus: Tendinitis signal.. There is some fluid in the subacromial bursa. There is a small are a which exhibits fluid signal through the entire tendon thickness above the greater tuberosity which is probably small area of full-thickness tearing. There is no retraction of the musculotendinous junc tion. There is mild muscle atrophy.. Infraspinatus: Insertional tendinitis. No full-thickness tear. Mild atrophy.. Teres Minor: Intact. No evidence of tear nor muscle atrophy. Subscapularis/anterior cuff: There is some tendinitis signal in the most superior of the multipennate insertional fibers of the subscapularis but no full thickness tear. BICEPS TENDON: Attenuated and appears perched on the lesser tuberosity. Partial tearing. No tenosynovitis. LABRUM: Superior labrum is intact. Anterior labrum intact. Posterior labrum appears intact. Inferi or labrum intact. No evidence of paralabral cyst. GLENOHUMERAL JOINT: No joint effusion nor obvious loose intra-articular bodies. No chondral defects. No osteophytes. Mild degenerative changes. No degenerative subarticular cysts. No evidence of cap sular tear. The inferior glenohumeral ligament is intact. QUADRILATERAL SPACE: No evidence of mass in the region of the axillary nerve and dorsal circumflex hu meral vessels. Visualized triceps muscle at this level appears unremarkable. IMPRESSION: 1. Partial thickness tearing of the supraspinatus with possible small area of full-thickness tear and some fluid in the subacromial bursa is seen. There is no retraction musculotendinous junction. 2. Insertional tendinitis versus articular side mild surface tearing of infraspinatus. No retraction . There is some mild muscle atrophy of both these muscles. 3. Tendinitis signal with in the upper aspect of the subscapularis but no high-grade tear. 4. No labral tears but there is attenuation and slight offset of the intra-articular aspect of the b iceps tendon which appears perched upon the lesser tuberosity. There is no evidence of SLAP-type tea r. Also no evidence of paralabral cyst. 5. Mild osteoarthritic degenerative changes in the glenohumeral joint. No significant joint effusio n. No loose intra-articular body. DATA REPOSITORY:
== END 2020-03-27 00:45 ==
PROVIDERS: PCP Nurse Practitioner; Visit Provider Student in an Organized Health Care Education/Training Program
DX: M75.112 Incomplete rotator cuff tear or rupture of left shoulder, not specified as traumatic (principal); M19.012 Primary osteoarthritis, left shoulder; M75.102 Unspecified rotator cuff tear or rupture of left shoulder, not specified as traumatic; M75.82 Other shoulder lesions, left shoulder
CPT/HCPCS: 73221

== ENCOUNTER 2020-05-03 02:20 | Outpatient (CLI) | payer MEDICARE, BC, SELFPAY ==
[2020-05-05 10:32] LABS: COVID-19 RT-PCR Result NEGATIVE (Negative)
== END 2020-05-03 02:40 ==
PROVIDERS: PCP Nurse Practitioner; Visit Provider Student in an Organized Health Care Education/Training Program
DX: Z11.52 Encounter for screening for COVID-19 (principal); Z01.818 Encounter for other preprocedural examination
CPT/HCPCS: U0003

== ENCOUNTER 2020-05-08 08:36 | Day surgery (SDC) | payer MEDICARE, BC, SELFPAY ==
[2020-05-08] VITALS (8 sets, daily range): BP systolic 107–148; BP diastolic 50–109; PULSE 56–64; RESP 14–18; TEMP 36–36.4; O2SAT 92–100
--- NOTE | 2020-05-08 09:17 | PDOC.DSDIS_ITS ---
Documented by User: KAELYN Brown 05/08/20 09:48 Discharge Plan Disposition Patient Disposition: HOME Condition: Good Discharge Details Reason For Visit: Left RTC repair Attending Provider: Gabriel Sher Primary Care Provider: Petra De La Rosa Home Meds and New Rx's Prescriptions: New celecoxib [Celebrex] 200 mg capsule 200 mg PO BID Qty: 60 RF: 0 acetaminophen [Tylenol Extra Strength] 500 mg tablet 500 mg PO Q6H PRNQty: 90 RF: 0 oxycodone 5 mg tablet 5 mg PO Q8H PRN (Reason: Pain) Qty: 6 RF: 0 Continued losartan 25 mg tablet 25 mg PO BID Qty: 180 RF: 3 lamotrigine 200 mg tablet 200 mg PO HS Qty: 45 RF: 3 aspirin 325 mg tablet 325 mg PO DAILY RF: 0 cholecalciferol (vitamin D3) 1,000 unit capsule 1,000 unit PO DAILY RF: 0 atomoxetine [Strattera] 25 mg capsule 25 mg PO DAILY RF: 0 Women's One Daily 1 EACH tablet 1 ea PO DAILY RF: 0 BiPAP RF: 0 metoprolol succinate 50 mg tablet extended release 24 hr 50 mg PO DAILY Qty: 90 RF: 3 omeprazole 40 mg capsule,delayed release(DR/EC) 40 mg PO .AM Qty: 90 RF: 3 atorvastatin 40 mg tablet 40 mg PO HS Qty: 90 RF: 3 duloxetine [Cymbalta] 60 mg capsule,delayed release(DR/EC) 60 mg PO DAILY RF: 0 levothyroxine 75 mcg tablet 75 mcg PO DAILY Qty: 90 RF: 3 furosemide 40 mg tablet 20 mg PO DAILY Qty: 60 RF: 3 Discontinued acetaminophen 500 mg tablet 200 mg PO TID PRNRF: 0 naproxen sodium [Aleve] 220 mg Capsule 1 tab PO PRN PRNRF: 0 Discharge Instructions Stand Alone Forms: Nikky varela/RCR Referrals: Gabriel Sher MD [ [facility] STAFF PHYSICIAN] - Equipment/Supplies: Sling Activity:: Activity as Tolerated Remove Dressings/Wound Care:: 72 hours Shower/Bathe:: 72 hours Diet:: As Tolerated Discharge Orders Discharge Orders: Discharge Order (Routine); Ordered 05/08/20 Ordered By: Mile Quintero DS: Diagnosis Discharge Diagnosis (1) Left rotator cuff tear: Status: Acute (2) Dysfunction of left rotator cuff: Status: Acute Documented by User: Gabriel Sher MD 05/08/20 10:57 Discharge Plan Disposition Patient Disposition: HOME Condition: Good Discharge Details Reason For Visit: Left RTC repair Attending Provider: Gabriel Sher Primary Care Provider: Petra De La Rosa Home Meds and New Rx's Prescriptions: New celecoxib [Celebrex] 200 mg capsule 200 mg PO BID Qty: 60 RF: 0 acetaminophen [Tylenol Extra Strength] 500 mg tablet 500 mg PO Q6H PRNQty: 90 RF: 0 oxycodone 5 mg tablet 5 mg PO Q8H PRN (Reason: Pain) Qty: 6 RF: 0 Continued losartan 25 mg tablet 25 mg PO BID Qty: 180 RF: 3 lamotrigine 200 mg tablet 200 mg PO HS Qty: 45 RF: 3 aspirin 325 mg tablet 325 mg PO DAILY RF: 0 cholecalciferol (vitamin D3) 1,000 unit capsule 1,000 unit PO DAILY RF: 0 atomoxetine [Strattera] 25 mg capsule 25 mg PO DAILY RF: 0 Women's One Daily 1 EACH tablet 1 ea PO DAILY RF: 0 BiPAP RF: 0 metoprolol succinate 50 mg tablet extended release 24 hr 50 mg PO DAILY Qty: 90 RF: 3 omeprazole 40 mg capsule,delayed release(DR/EC) 40 mg PO .AM Qty: 90 RF: 3 atorvastatin 40 mg tablet 40 mg PO HS Qty: 90 RF: 3 duloxetine [Cymbalta] 60 mg capsule,delayed release(DR/EC) 60 mg PO DAILY RF: 0 levothyroxine 75 mcg tablet 75 mcg PO DAILY Qty: 90 RF: 3 furosemide 40 mg tablet 20 mg PO DAILY Qty: 60 RF: 3 Discontinued acetaminophen 500 mg tablet 200 mg PO TID PRNRF: 0 naproxen sodium [Aleve] 220 mg Capsule 1 tab PO PRN PRNRF: 0 Discharge Instructions Stand Alone Forms: Nikky Thomas w/RCR Referrals: Gabriel Sher MD [ [facility] STAFF PHYSICIAN] - Equipment/Supplies: Sling Activity:: Activity as Tolerated Remove Dressings/Wound Care:: 72 hours Shower/Bathe:: 72 hours Diet:: As Tolerated Discharge Orders Discharge Orders: Discharge Order (Routine); Ordered 05/08/20 Ordered By: Mile Quintero
[2020-05-08] MEDS: Lactated Ringers 1,000 ML 80 ML IV (09:20)
[2020-05-08] MEDS: Bupivacaine LIPOSOME/PF 133 MG/10 ML VIAL IJ (10:21)
[2020-05-08] MEDS: Bupivacaine 0.5% Pres-Free 30 ML VIAL (10:21)
[2020-05-08] MEDS: ceFAZolin 2 GM/50 ML BAG IVPB (10:59)
[2020-05-08] MEDS: EPINEPHrine 30 MG/30 ML VIAL (12:15)
--- NOTE | 2020-05-08 12:38 | W.PM.OP ---
Date of service: 05/08/20 Time of Service: 12:20 Operative Note Operative Note DATE OF PROCEDURE: 05/08/20 PRE-OP DIAGNOSIS: Left Shoulder Rotator Cuff Tear, Biceps Tendinitis POST-OP DIAGNOSIS: other (Left Supraspinatus tear, Left SLAP tear) PROCEDURE: - Arthroscopic Rotator Cuff Repair - Extensive debridement of anterior and posterior glenohumeral joint and rotator cuff - Biceps Tenotomy SURGEON: Gabriel Sher STRAW BOSS: Ashish Ramos ANESTHESIA: GETA and regional ESTIMATED BLOOD LOSS: 0 PATHOLOGY: none sent COMPLICATIONS: None Patient was transported to: PACU Patient's condition: stable Indications: I have seen Rosalba in clinic for a painful shoulder. Pathology was confirmed based on MRI and exam findings. Nonoperative measures were exhausted but disability and pain persisted. I discussed shoulder arthroscopy and procedures. I reviewed the risks of the procedures to include, but not limited to, bleeding, infection, pain, stiffness, damage to nerves or vessels, recurrence, hardware failure, blood clot. Despite these risks, the patient elected to proceed. Findings: A diagnostic arthroscopy was performed with the following findings: Articular Side - Glenohumeral Joint: No significant arthritis - Labrum: Fraying and tearing of the superior labrum at the anchor and along the entire superior labrum, 11-2 o'clock. - Cuff: Partial articular tearing of supraspinatus, ~10mm - Biceps: Mild inflammatory changes Subacromial Side - Bursal: Dense, thickened bursa - Rotator Cuff: Bursal sided tearing of the posterior supraspinatus - No significant spurring Procedure Description: Rosalba was greeted in the preoperative holding area where the correct side was identified and marked. The consent was reviewed with the patient and signed. The history and physical was updated. All questions were answered. She was taken back to the PACU for administration of an intrascalene nerve block. Rosalba was then taken to the operating room. The patient was placed into the supine position on the operating room table. A general anesthetic was administered. She was then positioned in the beach chair position. All bony prominences were well padded. The head was placed in a foam transcribing operator head in a neutral position. Prophylactic antibiotics in the form of Cefazolin were administered. The left arm/shoulder was then prepped with Chloraprep and draped in a standard fashion with stockinette and shoulder drape. A timeout to confirm correct identity, side and site, procedure, allergies, anesthesia, and medical concerns was performed. The arm was placed into a pneumatic bone, [id number]. The shoulder arthroscopy was then performed. The glenohumeral joint was injected with 20 cc of normal saline with good flow back. A standard posterior portal was made and the joint was entered atraumatically with a blunt arthroscope. Once inside we had good visualization of the structures of the glenohumeral joint. An anterior portal was established with spinal needle localization. A 6.5 mm cannula was inserted. A probe was then used to perform a diagnostic arthroscopy. There is noted to be no significant cartilage damage of the glenoid humeral joint. The labrum was frayed and torn from the superior glenoid from about 11-2 o'clock. There were no loose bodies in the inferior pouch. The superior rotator cuff was torn, 10mm in depth at its greatest for most of the supraspinatus attachment. The biceps tendon had mild inflammatory changes. The subscapularis was intact. Given the tearing of the superior labrum I performed a debridement of the labrum. A biceps tenotomy was completed with electrocautery. I completed the debridement of the labrum anterior to posterior and also debrided the attachment of the labrum to the superior glenoid, roughening the bone in this area underneath the labrum. I used the shaver to debride the exposed portion of the footprint of the supraspinatus. The tissue in this area is actually quite poor and I used the shaver to complete the removal of any of the stretched and torn tissue. Once this was completed the subscapularis was fully inspected and showed no signs of tearing. Scope and equipment was removed from the shoulder. The arthroscope was then inserted into the subacromial space. The 6.5 mm cannula was placed lateral to the CA ligament. A complete bursectomy is performed anteriorly, posteriorly, and laterally with electrocautery and shaver. This had excellent exposure of the rotator cuff. I then placed 2 lateral portals, 1 anterior and 1 posterior. A 7.5 mm cannula was placed anteriorly in the 6.5 mm cannula was placed posteriorly. The bursal side rotator cuff was fully inspected and demonstrated a high-grade tear from the bursal surface of the posterior aspect supraspinatus. With the shaver, they were debrided these tissues down which exposed about 6 to 7 mm of lateral tuberosity.. There was no significant spurring. Using the 2 lateral portals I inspected the tear completely. It was obvious that there was a complete component to this now. While looking through the tear from the bursal surface was able see into the joint. I also used the shaver from within the tear itself to debride any loose or frayed tissue. With the tissue now fully prepared and the surface of the tuberosity debrided and prepared for repair, I checked for mobility. The tissue was easily mobile down to the surface. I then placed a single 4.5 mm Mytec Healix anchor right at the articular surface in the middle of the defect. This was placed without difficulty and with good purchase into the bone. With this anchor in place I then placed 2 horizontal mattress sutures using a retrograde suture passer into the bulk of the supraspinatus tendon. These had excellent purchase into the tendon. Once these were passed, 1 anterior and 1 posterior, I then tied using standard arthroscopic knot tying techniques. These laid completely on top of the greater tuberosity surface all the way to the lateral edge of the tuberosity. To improve surface area contact and support the medial row, I then placed 2 Lateral Row, knotless, anchors. These were 4.75 mm Mytec knotless Healix anchors. 1 suture limb from each suture was incorporated in each anchor. Anchors were placed anterior and posteriorly creating a speed bridge type technique. Once again, this had excellent reapproximation of the tendon down to the tuberosity surface. Suture limbs were cut. There is no dogear. The anterolateral corner of the acromion was once again inspected and showed no significant spurring and therefore no acromioplasty was performed. The scope equipment was removed from the shoulder. Excess fluid was evacuated. The portal sites were closed with 3-0 Monocryl. The wounds were dressed with Steri-Strips, 4 x 4's, ABDs, Medipore tape. A sling was applied. The patient tolerated the procedure well and was returned to the PACU in a stable condition suffering no known complication.
== END 2020-05-08 15:12 | disposition home or self-care (01) ==
PROVIDERS: PCP Nurse Practitioner; Visit Provider Student in an Organized Health Care Education/Training Program
PROC: (CPT 29827; principal; 2020-05-08 11:00)
DX: M75.122 Complete rotator cuff tear or rupture of left shoulder, not specified as traumatic (principal); M75.52 Bursitis of left shoulder; S43.432A Superior glenoid labrum lesion of left shoulder, initial encounter; X58.XXXA Exposure to other specified factors, initial encounter; G89.18 Other acute postprocedural pain; G47.33 Obstructive sleep apnea (adult) (pediatric)
CPT/HCPCS: 29827; 29823; C1713; 76942; J0690; J1100; J1885; J2370; J2405; J2704

== ENCOUNTER → 2020-05-20 14:01 | Outpatient (BNVA) | payer MEDICARE, BC, SELFPAY | PROVIDERS: PCP Nurse Practitioner; Referring Provider Nurse Practitioner; Visit Provider Physician Assistant | DX: Z47.89 Encounter for other orthopedic aftercare (principal); M75.102 Unspecified rotator cuff tear or rupture of left shoulder, not specified as traumatic ==

== ENCOUNTER → 2020-06-17 08:15 | Outpatient (BNVA) | payer MEDICARE, BC, SELFPAY | PROVIDERS: PCP Nurse Practitioner; Visit Provider Student in an Organized Health Care Education/Training Program | DX: Z47.89 Encounter for other orthopedic aftercare (principal) ==

== ENCOUNTER 2020-07-26 01:03 | Outpatient (CLI) | payer MEDICARE, BC, SELFPAY ==
[2020-07-26 12:30] LABS: Abs Immature Grans 0.02 10^3/uL (0.0-0.06); Absolute Basophil Count 0.04 10^3/uL (0.0-0.2); Absolute Eosinophil Count 0.13 10^3/uL (0.0-0.7); Absolute Lymphocyte Count 2.69 10^3/uL (1.2-3.4); Basophils % 0.6; Eosinophils % 1.8; HCT 42.5 % (36.0-46.0); HGB 13.7 g/dL (11.2-15.7); Immature Grans % 0.3; Lymphocytes % 37.5; MCH 29.4 pg (27.0-33.0); MCHC 32.2 % (32.0-36.0); MCV 91.2 fL (80-95); MPV 9.6 fL (8.0-11.0); Monocytes % 8.4; Neutrophils % 51.4; Nucleated RBC 0 %; Platelet Count 250 10^3/uL (130-400); RBC 4.66 10^6/uL (3.93-5.22); RDW 13.5 % (11.7-14.6); WBC 7.18 10^3/uL (4.4-10.8)
[2020-07-26 13:18] LABS: ALT 36 U/L (14-59); AST 26 U/L (15-37); Alkaline Phosphatase 116 U/L (46-116); Anion Gap 9.4 mmol/L (3-11); BUN 14 mg/dL (7-18); Bilirubin, Total 0.5 mg/dL (0.2-1.0); C-Reactive Protein 0.23 mg/dL (0.0-0.3); CO2 29.6 mmol/L (21.0-32.0); CREATININE 0.8 mg/dL (0.55-1.02); Calcium 9.6 mg/dL (8.5-10.1); Chloride 106 mmol/L (98-107); Glucose 108 mg/dL (74-106); Magnesium 1.9 mg/dL (1.8-2.4); Potassium 3.9 mmol/L (3.5-5.1); Sodium 145 mmol/L (136-145); TSH 1.29 uIU/mL (0.36-3.74); Total Protein 7.2 g/dL (6.4-8.2)
[2020-07-26 13:21] LABS: Hemoglobin A1C 5.8 % (<5.7)
[2020-07-26 14:16] LABS: Calculated LDL 94 mg/dL (<100); Cholesterol 176 mg/dL (<200); HDL Cholesterol 53 mg/dL (40-60); Triglyceride 148 mg/dL (<150); Vitamin B12 556 pg/mL (193-986)
[2020-07-26 14:17] LABS: Folate > 20.0 ng/mL (8.6-20.0)
[2020-07-26 21:58] LABS: T3, Total 136 ng/dL (97-169)
[2020-07-30 12:05] LABS: 25-Hydroxy D Total 60 ng/mL; 25-Hydroxy D2 <4.0 ng/mL; 25-Hydroxy D3 60 ng/mL
== END 2020-07-26 01:04 | disposition home or self-care (01) ==
LOC: LOS 01:04
PROVIDERS: PCP Nurse Practitioner; Visit Provider Psychiatry & Neurology Psychiatry
DX: F33.0 Major depressive disorder, recurrent, mild (principal); Z79.899 Other long term (current) drug therapy
CPT/HCPCS: 36415; 80053; 80061; 82306; 82607; 82746; 83036; 83735; 84439; 84443; 84480; 85025; 86140

== ENCOUNTER → 2020-07-29 08:34 | Outpatient (BNVA) | payer MEDICARE, BC, SELFPAY | PROVIDERS: PCP Nurse Practitioner; Visit Provider Student in an Organized Health Care Education/Training Program | DX: Z47.89 Encounter for other orthopedic aftercare (principal); M25.512 Pain in left shoulder ==

== ENCOUNTER → 2020-09-10 08:19 | Outpatient (BNVA) | payer MEDICARE, BC, SELFPAY | PROVIDERS: PCP Nurse Practitioner; Referring Provider Nurse Practitioner; Visit Provider Student in an Organized Health Care Education/Training Program ==

== ENCOUNTER 2020-12-04 15:21 | Outpatient (CLI) | payer MEDICARE, BC, SELFPAY ==
[2020-12-04 17:51] LABS: CREATININE 0.9 mg/dL (0.55-1.02); Calculated LDL 79 mg/dL (<100); Cholesterol 167 mg/dL (<200); HDL Cholesterol 49 mg/dL (40-60); Potassium 4.2 mmol/L (3.5-5.1); TSH (W/Ref FT4) 1.86 uIU/mL (0.36-3.74); Triglyceride 196 mg/dL (<150)
== END 2020-12-04 15:22 | disposition home or self-care (01) ==
LOC: LBO 15:22
PROVIDERS: PCP Nurse Practitioner; Visit Provider Nurse Practitioner
DX: I10 Essential (primary) hypertension (principal); E03.9 Hypothyroidism, unspecified; R73.03 Prediabetes
CPT/HCPCS: 36415; 80061; 82565; 83036; 84132; 84443

== ENCOUNTER 2020-12-13 04:14 | Outpatient (CLI) | payer MEDICARE, BC, SELFPAY ==
--- NOTE | 2020-12-13 06:50 | DI.MAMMO_ITS ---
Exam(s) MAMMO SCREENING EXAM: MAMMO SCREENING CLINICAL HISTORY: screening,Z12.39 TECHNIQUE: Mammograms were interpreted according to the usual protocol including computer analysis w [email or web address] system, tomosynthesis and C-view imaging. COMPARISON: FINDINGS: The breasts are of moderate density with fairly symmetrical distribution of fibroglandular tissue. A biopsy clip is noted in the upper inner quadrant of the right breast. There is no dominant mass or clumped microcalcification of either breast. Comparison with prior examinations including February 11 show no gross interval change in appearance comparison with previous studies. IMPRESSION: No specific evidence of malignancy at this time. Routine screening examinations are suggested at yea rly intervals in this age group according to the ACS ACR guidelines. BI-RADS Category 1 - Negative Breast Density - Category B - Scattered areas of fibroglandular density
== END 2020-12-13 04:34 ==
PROVIDERS: PCP Nurse Practitioner; Visit Provider Nurse Practitioner
DX: Z12.31 Encounter for screening mammogram for malignant neoplasm of breast (principal)
CPT/HCPCS: 77063; 77067

== ENCOUNTER 2021-02-11 11:53 | Emergency (ER) | payer MEDICARE, BC, SELFPAY ==
[2021-02-11] VITALS (36 sets, daily range): BP systolic 100–134; BP diastolic 38–69; PULSE 58–67; RESP 11–24; TEMP 36.3; O2SAT 93–100
--- NOTE | 2021-02-11 11:57 | W.ED.GENAD ---
Discharge Plan Disposition Patient Disposition: HOME Condition: Improving Discharge Details Clinical Impression: Epigastric abdominal pain Primary Care Provider: Petra De La Rosa ED Provider: Cheryl Winn Home Meds and New Rx's Prescriptions: New sucralfate [Carafate] 1 gram tablet 1 gm PO QACHS Qty: 14 RF: 0 Continued lamotrigine 200 mg tablet 200 mg PO HS Qty: 45 RF: 3 aspirin 325 mg tablet 325 mg PO DAILY RF: 0 cholecalciferol (vitamin D3) 1,000 unit capsule 1,000 unit PO DAILY RF: 0 atomoxetine [Strattera] 25 mg capsule 25 mg PO DAILY RF: 0 atorvastatin 40 mg tablet 40 mg PO HS Qty: 90 RF: 4 duloxetine [Cymbalta] 60 mg capsule,delayed release(DR/EC) 60 mg PO DAILY Qty: 90 RF: 4 furosemide 20 mg tablet 20 mg PO DAILY Qty: 90 RF: 4 levothyroxine 75 mcg tablet 75 mcg PO DAILY Qty: 90 RF: 4 losartan 25 mg tablet 25 mg PO BID Qty: 180 RF: 4 metoprolol succinate 50 mg tablet extended release 24 hr 50 mg PO DAILY Qty: 90 RF: 4 omeprazole 40 mg capsule,delayed release(DR/EC) 40 mg PO .AM Qty: 90 RF: 4 Women's One Daily 1 EACH tablet 1 ea PO DAILY RF: 0 BiPAP RF: 0 acetaminophen [Tylenol Extra Strength] 500 mg tablet 500 mg PO Q6H PRNQty: 90 RF: 0 Discharge Instructions Instructions: GERD (Gastroesophageal Reflux Disease) (ED), Esophageal Spasm (ED), Epigastric Pain (ED) Additional Instructions: Your lab work, EKGs and CT scan today are reassuring and did not note evidence of acute significant findings. Drink plenty of fluids and get plenty of rest. A prescription for Carafate has been sent electronically to your pharmacy. Continue to take your Prilosec daily as directed. Call your primary care doctor tomorrow to schedule a follow-up appointment for reevaluation and for referral for outpatient stress test if you develop persistent chest pain or for referral to surgery for potential upper endoscopy if your epigastric pain and indigestion persists or worsens. Return immediately to the emergency department if you develop any worsening or new concerning symptoms. Referrals: Katy Martinez DO [OSTEOPATHIC DOCTOR] - Discharge Data Discharge Date/Time-TO BE ENTERED AT DEPARTURE: 02/11/21 17:01 Discharge Physician: Cheryl Winn Medical Decision Making 70-year-old female with a history of atherosclerotic cardiovascular disease, CABG, hypertension, GERD, hypothyroidism, mitral valve repair presents for epigastric pain with radiation to her chest since this morning. EKG on arrival notes a rate of 58, sinus, no STEMI, nondiagnostic. Patient appears comfortable but nontoxic. She does have right upper quadrant, epigastric and right lower quadrant tenderness. Differential diagnosis includes GERD, gastritis, PUD, biliary colic, cholecystitis. History and presentation does not appear consistent with acs, PE or dissection. Considering her age and history, will obtain cardiac work-up, CT chest and abdomen and give GI cocktail, Pepcid, Zofran and fluids and reassess. Labs and imaging reviewed and unremarkable. Normal white blood cell count. Troponin negative. CT chest abdomen pelvis negative for acute findings. Patient reassessed and her symptoms significantly improved. She was agreeable to stay for troponin and EKG which are unchanged. Patient felt comfortable going home. A prescription for Carafate was sent electronically to her pharmacy. She was advised to continue her omeprazole. Advised to follow-up with her PCP for reevaluation if her symptoms do not improve or worsen for reevaluation by surgery and for consideration for upper endoscopy. Also discussed that if she developed persistent chest pain, to consider outpatient stress test. Usual and customary return precautions given prior to discharge. Medical Records Medical records reviewed: Yes I reviewed the patient's medical records. Imaging Data Radiologic Study: Radiologist's impression: CT CHEST/ABD/PEL W CLINICAL HISTORY: substernal chest pain, epigastric/RLQ pain TECHNIQUE: CT examination of the chest, abdomen, and pelvis was performed utilizing intravenous infusion of 100 cc of Omnipaque 350. COMPARISON: No exams were available for comparison FINDINGS: Lungs are predominantly clear with some apparent scarring in the lung bases period small fat containing diaphragmatic hernias are seen posteriorly.. No pleural effusion. No pleural based mass. No mediastinal or hilar adenopathy. No axillary or supraclavicular adenopathy. Tracheobronchial tree appears intact. Note is made of coronary artery calcification. No evidence of pulmonary embolic disease. Unremarkable appearance of thoracic aorta and major branch vessels. The liver appears normal with no focal hepatic lesion identified. Spleen is unremarkable in appearance. Pancreas appears intact. Adrenals appear normal. Kidneys are unremarkable in appearance with no renal mass, hydronephrosis, or nephrolithiasis. Abdominal aorta and major visceral branches appear intact. No focal bowel pathology. Appendix is normal. No evidence of diverticulitis. No abdominal or pelvic adenopathy. No significant abdominal wall hernia. No focal bony lesion identified on scanning of the chest, abdomen, and pelvis. IMPRESSION: No evidence of acute process. Lab Data Lab results reviewed: Yes I reviewed the patient's lab results. Labs: Laboratory Tests Range/Units 02/11/21 02/11/21 02/11/21 12:20 12:20 14:56 WBC (4.4-10.8) 10^3/uL 8.24 RBC (3.93-5.22) 10^6/uL 4.89 Hgb (11.2-15.7) g/dL 14.2 Hct (36.0-46.0) % 43.9 MCV (80-95) fL 89.8 MCH (27.0-33.0) pg 29.0 MCHC (32.0-36.0) % 32.3 RDW (11.7-14.6) % 13.1 Plt Count (130-400) 10^3/uL 217 MPV (8.0-11.0) fL 9.5 Immature Gran % 0.2 Neutrophils % 45.8 Lymphocytes % 43.0 Monocytes % 8.6 Eosinophils % 1.8 Basophils % 0.6 Nucleated RBC % % 0 Absolute Neutrophils (1.2-6.7) 10^3/uL 3.77 Absolute Lymphocytes (1.2-3.4) 10^3/uL 3.54 H Absolute Monocytes (0.1-0.8) 10^3/uL 0.71 Absolute Eosinophils (0.0-0.7) 10^3/uL 0.15 Absolute Basophils (0.0-0.2) 10^3/uL 0.05 Sodium (136-145) mmol/L 143 Potassium (3.5-5.1) mmol/L 3.9 Chloride (98-107) mmol/L 104 Carbon Dioxide (21.0-32.0) mmol/L 34.9 H Anion Gap (3-11) mmol/L 4.1 BUN (7-18) mg/dL 20 H Creatinine (0.55-1.02) mg/dL 1.0 Estimated GFR/1.73 m2 (mL/min/1.73m2) 54.50 Glucose (74-106) mg/dL 97 Calcium (8.5-10.1) mg/dL 9.7 Magnesium (1.8-2.4) mg/dL 2.2 Total Bilirubin (0.2-1.0) mg/dL 0.4 AST (15-37) U/L 18 ALT (14-59) U/L 29 Alkaline Phosphatase (46-116) U/L 117 H Troponin I (<0.06) ng/mL < 0.05 < 0.05 Total Protein (6.4-8.2) g/dL 7.8 Albumin (3.4-5.0) g/dL 4.0 Lipase (73-393) U/L 196 ECG Data Attestation: I personally reviewed and interpreted this ECG (s) as follows: Interpretation: #1 -- Rate of 58, sinus, no acute ST elevation or depression. [place] 139. QRS 108. QTc 407. #2 -- Rate of 61, sinus, no acute ST elevation or depression. [place] 190. QRS 110. QTc 422. HPI General Mode of arrival: ambulatory. Date/Time Provider Initiated Documentation: 02/11/21 11:56. Limitations to Documentation: no limitations. Information obtained by: patient. HPI Narrative: Patient is a 70-year-old female with a history of atherosclerotic cardiovascular disease with CABG, mitral valve repair, hypertension, GERD, hypothyroidism, gastritis presents for epigastric pain with radiation to her chest described as burning indigestion since 930 this morning. Patient states she was sitting at home on her computer when she developed epigastric pain which then radiated with an indigestion feeling to her chest. She denies any radiation to her back, arm or jaw. She states she took her regular medication this morning including her omeprazole without relief. She denies any fever, cough, shortness of breath, nausea, vomiting or diarrhea. She states her last bowel movement was this morning and normal. She does admit to intermittent dizziness. Related Data Home Medications Medication Instructions Recorded Confirmed Women's One Daily 1 ea PO DAILY 07/16/12 12/06/20 Bipap 07/26/14 12/06/20 aspirin 325 mg tablet 325 mg PO DAILY 12/17/17 12/06/20 cholecalciferol (vitamin D3) 25 1,000 unit PO DAILY 12/17/17 12/06/20 mcg (1,000 unit) capsule atomoxetine 25 mg capsule 25 mg PO DAILY cap 02/20/19 12/06/20 lamotrigine 200 mg tablet 200 mg PO HS #45 tab 12/05/19 12/06/20 acetaminophen [Tylenol Extra 500 mg PO Q6H PRN #90 tab 05/08/20 12/06/20 Strength] atorvastatin 40 mg tablet 40 mg PO HS #90 tab 12/06/20 12/06/20 duloxetine 60 mg capsule,delayed 60 mg PO DAILY #90 cap 12/06/20 12/06/20 release furosemide 20 mg tablet 20 mg PO DAILY #90 tab 12/06/20 12/06/20 levothyroxine 75 mcg tablet 75 mcg PO DAILY #90 tab 12/06/20 12/06/20 losartan 25 mg tablet 25 mg PO BID #180 tab 12/06/20 12/06/20 metoprolol succinate 50 mg 50 mg PO DAILY #90 tab 12/06/20 12/06/20 tablet,extended release 24 hr omeprazole 40 mg capsule,delayed 40 mg PO .AM #90 cap 12/06/20 02/11/21 release sucralfate [Carafate] 1 gm PO QACHS #14 tab 02/11/21 Previous Rx's Medication Instructions Recorded lamotrigine 200 mg tablet 200 mg PO HS #45 tab 12/05/19 acetaminophen [Tylenol Extra 500 mg PO Q6H PRN #90 tab 05/08/20 Strength] atorvastatin 40 mg tablet 40 mg PO HS #90 tab 12/06/20 duloxetine 60 mg capsule,delayed 60 mg PO DAILY #90 cap 12/06/20 release furosemide 20 mg tablet 20 mg PO DAILY #90 tab 12/06/20 levothyroxine 75 mcg tablet 75 mcg PO DAILY #90 tab 12/06/20 losartan 25 mg tablet 25 mg PO BID #180 tab 12/06/20 metoprolol succinate 50 mg 50 mg PO DAILY #90 tab 12/06/20 tablet,extended release 24 hr omeprazole 40 mg capsule,delayed 40 mg PO .AM #90 cap 12/06/20 release sucralfate [Carafate] 1 gm PO QACHS #14 tab 02/11/21 Allergies Allergy/AdvReac Type Severity Reaction Status Date / Time ciprofloxacin HCl Allergy Severe angioedema Verified 02/11/21 12:27 [From Cipro] lisinopril Allergy Severe angioedema Verified 02/11/21 12:27 modafinil [From Provigil] AdvReac Intermediate increased Verified 02/11/21 12:27 agitation,hallucinations, insomnia prednisone AdvReac Intermediate SKIN, Verified 02/11/21 12:27 MUSCLE CRAWL General KAMRON: 4 Review of Systems All systems reviewed & are unremarkable except as noted in HPI and below Constitutional Constitutional: Reports as per HPI, Denies chills and Denies fever(s) Eyes Eyes: Denies blurry vision ENT Ears, Nose, Mouth, and Throat: Denies dizziness, Denies sore throat and Denies throat swelling Cardiovascular Cardiovascular: Reports chest pain and Denies dyspnea Respiratory Respiratory: Denies cough and Denies dyspnea Gastrointestinal Gastrointestinal: Reports abdominal pain, Denies diarrhea and Denies vomiting Genitourinary Genitourinary: Denies hematuria and Denies dysuria Musculoskeletal Musculoskeletal: Denies back pain and Denies numbness Integumentary/Breasts Skin/Breast: Denies lesions and Denies rash Neurologic Neurologic: Denies dizziness, Denies localized weakness and Denies numbness Allergic/Immunologic Allergic/Immunologic: Denies throat swelling [facility] Medical History (Updated 02/11/21 @ 16:42 by Cheryl Winn DO) Anemia ASCVD (arteriosclerotic cardiovascular disease) ASCVD (arteriosclerotic cardiovascular disease) CABG x1 and mitral valve repair at [facility] 12/18 Essential hypertension [place] Family history of colon cancer colon cancer-father Gastritis and duodenitis (~03/22/18) GERD (gastroesophageal reflux disease) Hypothyroidism Incomplete tear of right rotator cuff (11/01/15) Memory loss (08/21/14) went to memory clinic - was normal Mitral valve regurgitation systolic murmur; Juan; 04/19 echo severe MR--Mitral valve repair and CABG at [facility] 12/18 Nevus, non-neoplastic (06/09/08) atypical mole-perianal (mild atypica) SARA (obstructive sleep apnea) Osteoarthritis of knee (02/28/13) 08/23; RIGHT KNEE REPLACEMENT; [facility] Surgical History (Updated 06/17/20 @ 08:44 by KAELYN Leonardo) ANKLE REPAIR (~01/2009) Colonoscopy - MAC (09/07/17) History of bilateral ligation of fallopian tubes History of mitral valve repair Left rotator cuff tear s/p arthroscopy RTC repair and biceps tenotomy DOS: 05/08/20 Ligation of fallopian tube (~1975) BSO Meniscectomy (~2012) Replacement of total knee joint 08/23; [facility] (RIGHT) Status post total knee replacement Family History Mother , 86 Heart disease Neoplasm STOMACH Heart valve disorder MITRAL VALVE REPLACED Father , 65 Neoplasm LIVER & COLON Hypertension Grandfather Heart disease Grandfather Diabetes Grandmother Heart disease Daughter Heart disease Heart valve disorder Daughter Depression Brother Essential hypertension Hepatitis C Son Depression Basal cell carcinoma Daughter Heart disease Daughter Depression Social History (Updated 12/06/20 @ 14:45 by Lacie Dickens) Smoking/Tobacco Use Status: Former Tobacco Use tobacco type: cigarettes Quit Date: 04/12/69 Tobacco: How many years used: 2 Quit status: quit date established Second Hand Exposure: Yes Smoking risk assessment performed?: Yes Alcohol Intake: never Drug use: Never Substance use type: does not use Counseling given: No 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 [employer]: [employer] Special trina needs: No Seatbelt use: always Drive intox or ride w/intox racecar driver: No Do you feel safe at home: Yes Do you feel safe in your relationship?: Yes Exam Const General: cooperative and no acute distress HENCA Head: normal to inspection Face and sinus: normal facial exam Eyes General: appearance normal, both eyes and all related structures EOM: EOM intact bilaterally Neck Neck: normal visual inspection and No submandibular swelling Lymphatic: no lymphadenopathy noted Chest Chest: normal inspection of the chest and no tenderness Resp Effort & Inspection: normal respiratory effort and able to speak in complete sentences Auscultation: clear to auscultation bilaterally Cardio Rate: regular rate Rhythm: regular rhythm GI Inspection: normal to inspection Palpation: soft, not firm, not rigid and tender in the RUQ Auscultation: normal bowel sounds Skin General skin exam: no rashes or lesions noted Neuro General: patient alert, patient awake and patient oriented x3 Cognition: normal cognition Speech: speech normal Motor: muscle tone normal throughout Sensory Exam: no sensory deficits noted Extrem General: normal to inspection, full ROM, capillary refill normal, no calf tenderness bilaterally and no edema Psych Appearance: grossly normal Mental Status: mental status grossly normal Speech and Movement: speech and movement normal Affect: normal affect
--- NOTE | 2021-02-11 12:00 | RT.EKG_ITS ---
APPROVED REPORT Exam: Resting ECG Reason for Exam: abd pain Patient Location: E HR:58 bpm ECG Measurements Heart Rate 58 AXIS TN 139 P 10 QRSd 108 QRS -15 QT 413 T 45 QTc 407 Conclusion Sinus bradycardia...rate< 60 Inferior infarct, old...Q >35mS, II III aVF. Sinus. No STEMI. I have reviewed and interpreted ECG and agree with software generated interpretation.
[2021-02-11 12:30] LABS: Abs Immature Grans 0.02 10^3/uL (0.0-0.06); Absolute Basophil Count 0.05 10^3/uL (0.0-0.2); Absolute Eosinophil Count 0.15 10^3/uL (0.0-0.7); Absolute Lymphocyte Count 3.54 10^3/uL (1.2-3.4); Absolute Monocyte Count 0.71 10^3/uL (0.1-0.8); Absolute Neutrophil Count 3.77 10^3/uL (1.2-6.7); Basophils % 0.6; Eosinophils % 1.8; HCT 43.9 % (36.0-46.0); HGB 14.2 g/dL (11.2-15.7); Immature Grans % 0.2; MCHC 32.3 % (32.0-36.0); MCV 89.8 fL (80-95); MPV 9.5 fL (8.0-11.0); Monocytes % 8.6; Neutrophils % 45.8; Nucleated RBC 0 %; Platelet Count 217 10^3/uL (130-400); RBC 4.89 10^6/uL (3.93-5.22); RDW 13.1 % (11.7-14.6); RDW-SD 42.7 fL; WBC 8.24 10^3/uL (4.4-10.8)
--- NOTE | 2021-02-11 12:30 | DI.CT_ITS ---
Exam(s) CT CHEST/ABD/PEL W EXAM: CT CHEST/ABD/PEL W CLINICAL HISTORY: substernal chest pain, epigastric/RLQ pain TECHNIQUE: CT examination of the chest, abdomen, and pelvis was performed utilizing intravenous inf usion of 100 cc of Omnipaque 350. COMPARISON: No exams were available for comparison FINDINGS: Lungs are predominantly clear with some apparent scarring in the lung bases period small fat containi ng diaphragmatic hernias are seen posteriorly.. No pleural effusion. No pleural based mass. No mediastinal or hilar adenopathy. No axillary or supraclavicular adenopathy. Tracheobronchial suzy e appears intact. Note is made of coronary artery calcification. No evidence of pulmonary embolic disease. Unremarkable appearance of thoracic aorta and major branch vessels. The liver appears normal with no focal hepatic lesion identified. Spleen is unremarkable in appearance. Pancreas appears intact. Adrenals appear normal. Kidneys are unremarkable in appearance with no renal mass, hydronephrosis, or nephrolithiasis. Abdominal aorta and major visceral branches appear intact. No focal bowel pathology. Appendix is normal. No evidence of diverticulitis. No abdominal or pelvic adenopathy. No significant abdominal wall hernia. No focal bony lesion identified on scanning of the chest, abdomen, and pelvis. IMPRESSION: No evidence of acute process. RADIATION DOSE DELIVERED: 1,452.83mGy.cm Total DLP 1,452.83mGy.cm Total DLP 21.27mGy CTDIvol RADIATION OPTIMIZATION: All CT scans at this facility use at least one of these dose optimization te chniques: automated exposure control; mA and/or kV adjustment per patient size (includes targeted exa ms where dose is matched to clinical indication); or iterative reconstruction.
[2021-02-11 12:46] LABS: ALT 29 U/L (14-59); AST 18 U/L (15-37); Alkaline Phosphatase 117 U/L (46-116); Anion Gap 4.1 mmol/L (3-11); BUN 20 mg/dL (7-18); Bilirubin, Total 0.4 mg/dL (0.2-1.0); CO2 34.9 mmol/L (21.0-32.0); Calcium 9.7 mg/dL (8.5-10.1); Chloride 104 mmol/L (98-107); Glucose 97 mg/dL (74-106); Lipase 196 U/L (73-393); Magnesium 2.2 mg/dL (1.8-2.4); Potassium 3.9 mmol/L (3.5-5.1); Sodium 143 mmol/L (136-145); Total Protein 7.8 g/dL (6.4-8.2); Troponin I < 0.05 ng/mL (<0.06)
[2021-02-11] MEDS: Ondansetron 4 MG/2 ML VIAL IVP (12:56)
[2021-02-11] MEDS: FAMOTIDINE 20 MG/50 ML BAG 200 MG IVPB (12:56)
[2021-02-11] MEDS: Normal Saline Flush 10 ML SYR IVP (13:33)
[2021-02-11] MEDS: Omnipaque 350 MG/ML 100 ML BTL IJ (13:34)
[2021-02-11] MEDS: Normal Saline - Diluent 50 ML VIAL IV (13:35)
--- NOTE | 2021-02-11 14:15 | RT.EKG_ITS ---
APPROVED REPORT Exam: Resting ECG Reason for Exam: epigastric pain Patient Location: E HR:61 bpm ECG Measurements Heart Rate 61 AXIS OR 190 P 55 QRSd 110 QRS 1 QT 419 T 46 QTc 422 Conclusion Sinus rhythm...normal P axis, V-rate 60- 99 Inferior infarct, old...Q >35mS, II III aVF. Sinus. No STEMI. I have reviewed and interpreted ECG and agree with software generated interpretation.
[2021-02-11 15:35] LABS: Troponin I < 0.05 ng/mL (<0.06)
== END 2021-02-11 17:01 | disposition home or self-care (01) ==
PROVIDERS: Emergency Provider Physician Assistant; PCP Nurse Practitioner
DX: R10.13 Epigastric pain (principal); R07.9 Chest pain, unspecified
CPT/HCPCS: 36415; 74177; 80053; 83690; 93005; 96365; 96375; 99285; 71260; 83735; 84484; 85025; 93010; 99284; J2405; J3490

== ENCOUNTER 2022-02-27 01:17 | Outpatient (CLI) | payer MEDICARE, SELFPAY ==
[2022-02-27 11:50] LABS: HCT 43.2 % (36.0-46.0); HGB 14.2 g/dL (11.2-15.7); MCHC 32.9 % (32.0-36.0); MCV 88 fL (80-95); MPV 9.1 fL (8.0-11.0); Platelet Count 226 10^3/uL (130-400); RBC 4.89 10^6/uL (3.93-5.22); RDW 12.9 % (11.7-14.6); RDW-SD 41.7 fL; WBC 8.05 10^3/uL (4.4-10.8)
[2022-02-27 12:37] LABS: Calculated LDL 97 mg/dL (<100); Cholesterol 183 mg/dL (<200); HDL Cholesterol 59 mg/dL (40-60); TSH (W/Ref FT4) 3.78 uIU/mL (0.36-3.74); Triglyceride 135 mg/dL (<150)
[2022-02-27 12:56] LABS: FREE T4 0.72 ng/dL (0.76-1.46)
== END 2022-02-27 01:18 | disposition home or self-care (01) ==
LOC: LBO 01:17
PROVIDERS: Nurse Practitioner; Nurse Practitioner Family; PCP Nurse Practitioner Family; Visit Provider Nurse Practitioner Family
DX: D64.9 Anemia, unspecified (principal); F32.9 Major depressive disorder, single episode, unspecified; E03.9 Hypothyroidism, unspecified; I10 Essential (primary) hypertension; R73.03 Prediabetes
CPT/HCPCS: 36415; 80061; 85027; 83036; 84439; 84443

== ENCOUNTER 2022-04-23 04:05 | Outpatient (CLI) | payer MEDICARE, SELFPAY ==
[2022-04-23 12:57] LABS: TSH (W/Ref FT4) 1.59 uIU/mL (0.36-3.74)
== END 2022-04-23 04:06 | disposition home or self-care (01) ==
PROVIDERS: PCP Nurse Practitioner Family; Visit Provider Nurse Practitioner Family
DX: E03.9 Hypothyroidism, unspecified (principal)
CPT/HCPCS: 36415; 84443

== ENCOUNTER 2022-04-28 02:01 | Outpatient (CLI) | payer MEDICARE, SELFPAY ==
--- NOTE | 2022-04-28 12:02 | DI.MAMMO_ITS ---
Exam(s) MAMMO SCREENING EXAM: MAMMO SCREENING CLINICAL HISTORY: screening.Z12.39. TECHNIQUE: Bilateral full field digital CC and MLO mammographic images were obtained with 3D tomosyn thesis and utilizing computer aided detection (CAD). COMPARISON: Prior mammograms were reviewed. FINDINGS: There has been no significant change in the appearance and distribution of the fibroglandular tissue. There are no new spiculated masses nor malignant appearing microcalcification groups. There is no significant architectural distortion nor skin thickening-retraction. IMPRESSION: No radiographic evidence of malignancy. BI-RADS Category 1 - Negative Breast Density - Category B - Scattered areas of fibroglandular density Breast density Category C or D implies that the patient has dense breast tissue. Dense breast tissue can make it harder to find cancer on a mammogram. Dense breast tissue is also associated with an incr eased risk of breast cancer. This information about the result of the mammogram report was provided to the patient to raise their awareness. Use this report when you speak with the patient about their risks for breast cancer, which includes their family history. At that time, you may recommend additional screening tests (Ultrasoun d or MRI) as these tests may add significant information. A negative radiographic report should not delay biopsy if a dominant or clinically suspicious mass is present. Up to ten percent of cancers are not identified on mammography. A negative report may reinforce clinical impression. Adenosis and dense breasts may obscure an underlying neoplasm. False positive reports average 6 to 10%. Patient will receive a letter notifying them of these results.
== END 2022-04-28 02:21 ==
LOC: DI 02:03
PROVIDERS: PCP Nurse Practitioner Family; Visit Provider Nurse Practitioner Family
DX: Z12.31 Encounter for screening mammogram for malignant neoplasm of breast (principal); R92.8 Other abnormal and inconclusive findings on diagnostic imaging of breast
CPT/HCPCS: 77063; 77067

== ENCOUNTER 2022-05-01 00:23 | Outpatient (CLI) | payer MEDICARE, SELFPAY ==
--- NOTE | 2022-05-01 07:45 | DI.DEXA_ITS ---
Exam(s) XR DEXA BONE DENSITY W/WO BJ EXAM: XR DEXA BONE DENSITY W/WO BJ CLINICAL HISTORY: loose teeth,SCREENING FOR OSTEOPOROSIS IN POSTMENOPAUSAL WOMAN,Z78.0 TECHNIQUE: COMPARISON: CT CT CHEST/ABD/PEL W from 02/11/2021 FINDINGS: Lateral Spine Image: There is an old compression deformity of L1. Left hip: Total T-Score: -1.2. This compares to -0.3 on the prior examination. Total Z-Score: 0.5 T- and Z-scores: Findings consistent with osteopenia. Lumbar Spine: Total T-Score: -0.3. This compares to -0.1 on the prior examination. Total Z-Score: 2.1 T- and Z-scores: Within normal limits. IMPRESSION: No evidence of osteoporosis in the lumbar spine or left hip.
== END 2022-05-01 00:43 ==
PROVIDERS: PCP Nurse Practitioner Family; Visit Provider Nurse Practitioner Family
DX: Z78.0 Asymptomatic menopausal state (principal)
CPT/HCPCS: 77080

== ENCOUNTER → 2022-07-15 10:23 | Outpatient (BNVA) | payer MEDICARE, SELFPAY | PROVIDERS: PCP Nurse Practitioner Family; Referring Provider Nurse Practitioner Family; Visit Provider Nurse Practitioner Adult Health | DX: R51.9 Headache, unspecified (principal) | CPT/HCPCS: 99204; 99214 ==

== ENCOUNTER 2022-07-20 01:41 | Outpatient (CLI) | payer MEDICARE, SELFPAY ==
[2022-07-20 13:10] LABS: ESR 8 mm/hr (0-30)
[2022-07-20 13:47] LABS: C-Reactive Protein 0.31 mg/dL (0.0-0.3)
== END 2022-07-20 01:42 | disposition home or self-care (01) ==
PROVIDERS: PCP Nurse Practitioner Family; Visit Provider Nurse Practitioner Adult Health
DX: R51.9 Headache, unspecified (principal)
CPT/HCPCS: 36415; 85652; 86140

== ENCOUNTER 2022-07-24 00:34 | Outpatient (CLI) | payer MEDICARE, SELFPAY ==
--- NOTE | 2022-07-24 08:45 | DI.MRI_ITS ---
Exam(s) MR BRAIN WO EXAM: MR BRAIN WO CLINICAL HISTORY: left temporal headache and left facial pain,,R51.9 TECHNIQUE: Multiplanar multisequence MRI of the brain was performed. COMPARISON: CT CT HEAD WO from 10/24/2018 FINDINGS: VENTRICLES AND EXTRA AXIAL SPACES: Normal in size and morphology for the patient's age. MIDLINE SHIFT: None. CEREBRAL PARENCHYMA: No focus of restricted diffusion to suggest acute infarct. No space-occupying le savannah identified. Scattered white matter foci consistent with microvascular changes. Mild atrophy. HEMORRHAGE: None. BRAINSTEM/CEREBELLUM: Normal. VISUALIZED PARANASAL SINUSES/MASTOIDS:Clear. Vasculature: Normal flow void. PITUITARY GLAND: Unremarkable. ORBITS: Unremarkable. IMPRESSION: Unremarkable MRI of the brain. DATA REPOSITORY:
== END 2022-07-24 00:54 ==
LOC: DI 00:35
PROVIDERS: PCP Nurse Practitioner Family; Visit Provider Nurse Practitioner Adult Health
DX: R51.9 Headache, unspecified (principal)
CPT/HCPCS: 70551

== ENCOUNTER → 2022-09-01 08:26 | Outpatient (BNVA) | payer MEDICARE, SELFPAY | PROVIDERS: PCP Nurse Practitioner Family; Referring Provider Nurse Practitioner Family; Visit Provider Nurse Practitioner Adult Health | DX: R51.9 Headache, unspecified (principal); Z79.82 Long term (current) use of aspirin; E78.5 Hyperlipidemia, unspecified; I10 Essential (primary) hypertension; R73.03 Prediabetes | CPT/HCPCS: 99213; 99214 ==

== ENCOUNTER 2022-09-08 10:37 | Outpatient (CLI) | payer MEDICARE, SELFPAY | END 2022-09-08 10:38 | disposition home or self-care (01) | PROVIDERS: PCP Nurse Practitioner Family; Visit Provider Nurse Practitioner Adult Health | DX: I63.9 Cerebral infarction, unspecified (principal) | CPT/HCPCS: 93270 ==

== ENCOUNTER 2022-09-30 01:43 | Outpatient (CLI) | payer MEDICARE, SELFPAY ==
--- NOTE | 2022-09-30 08:00 | DI.US_ITS ---
Exam(s) US CAROTID EXAM: US CAROTID CLINICAL HISTORY: ? left frontal stroke MRI, r/o stenosis, STROKE, I63.9 CEREBRAL INFARCTION. TECHNIQUE: Ultrasound carotids performed using grayscale, color-flow, and spectral Doppler imaging. COMPARISON: No exams were available for comparison FINDINGS: RIGHT CAROTID ARTERY: Plaque: Mild calcific plaque present. Velocity elevation: None. LEFT CAROTID ARTERY: Plaque: Mild calcific plaque present. Velocity elevation: None. VERTEBRAL ARTERIES: Antegrade flow. Measurements: R Bulb: 60.7cm/s PS / 12.8cm/s ED R CCA: 72.2cm/s PS / 16.5cm/s ED R ECA: 78.5cm/s PS / 9cm/s ED R ICA Prox: 60.7cm/s PS / 17.5cm/s ED R ICA Mid: 83.8cm/s PS / 24.9cm/s ED R ICA Distal: 101.3cm/s PS /27.4cm/s ED R Vert: 79.1cm/s PS / 18.8cm/s ED R SVR: 1.4 R DVR: 1.7 L Bulb: 75.9cm/s PS / 17.7cm/s ED L CCA: 88cm/s PS / 17.7cm/s ED L ECA: 89.2cm/s PS / 11.6cm/s ED L ICA Prox: 65.1cm/s PS / 14.9cm/s ED L ICA Mid: 109.8cm/s PS / 25cm/s ED L ICA Distal: 75.9cm/s PS / 22.5cm/s ED L Vert: 53.8cm/s PS / 12.5cm/s ED L SVR: 1.2 L DVR: 1.4 IMPRESSION: No evidence for hemodynamically significant carotid stenosis. Criteria for Carotid Stenosis: Normal: ICA PSV <125 cm/s no plaque or intimal thickening is visible. <50% stenosis: ICA PSV <125 cm/s and plaque or intimal thickening is visible. 50-69% stenosis: ICA PSV is 125-250 cm/s and plaque is visible. >70% stenosis to near occlusion: ICA PSV >250 cm/s with visible plaque and luminal narrowing. DATA REPOSITORY:
== END 2022-09-30 02:03 ==
LOC: DI 01:43
PROVIDERS: PCP Nurse Practitioner Family; Visit Provider Nurse Practitioner Adult Health
DX: I63.9 Cerebral infarction, unspecified (principal)
CPT/HCPCS: 93880

== ENCOUNTER → 2022-11-03 09:05 | Outpatient (BNVA) | payer MEDICARE, SELFPAY | PROVIDERS: PCP Nurse Practitioner Family; Referring Provider Nurse Practitioner Family; Visit Provider Nurse Practitioner Adult Health | DX: I69.398 Other sequelae of cerebral infarction (principal); R20.0 Anesthesia of skin; Z79.82 Long term (current) use of aspirin; Z79.02 Long term (current) use of antithrombotics/antiplatelets; I10 Essential (primary) hypertension; R51.9 Headache, unspecified | CPT/HCPCS: 99213 ==

== ENCOUNTER 2022-12-22 02:42 | Outpatient (CLI) | payer MEDICARE, SELFPAY ==
[2022-12-22 09:47] LABS: HCT 42.5 % (36.0-46.0); HGB 13.8 g/dL (11.2-15.7); MCH 28.5 pg (27.0-33.0); MCHC 32.5 % (32.0-36.0); MCV 88 fL (80-95); MPV 9.1 fL (8.0-11.0); Platelet Count 196 10^3/uL (130-400); RBC 4.84 10^6/uL (3.93-5.22); RDW-SD 41.5 fL; WBC 6.64 10^3/uL (4.4-10.8)
[2022-12-22 10:07] LABS: Hemoglobin A1C 6.1 % (<5.7)
[2022-12-22 10:34] LABS: ALT 38 U/L (14-59); AST 24 U/L (15-37); Albumin 3.7 g/dL (3.4-5.0); Alkaline Phosphatase 98 U/L (46-116); Anion Gap 8.3 mmol/L (3-11); BUN 15 mg/dL (7-18); Bilirubin, Total 0.6 mg/dL (0.2-1.0); CO2 30.7 mmol/L (21.0-32.0); CREATININE 0.9 mg/dL (0.55-1.02); Calcium 9.2 mg/dL (8.5-10.1); Calculated LDL 82 mg/dL (<100); Chloride 103 mmol/L (98-107); Cholesterol 162 mg/dL (<200); Estimated GFR 67.08 (mL/min/1.73m2); Glucose 117 mg/dL (74-106); HDL Cholesterol 54 mg/dL (40-60); Potassium 4.4 mmol/L (3.5-5.1); Sodium 142 mmol/L (136-145); TSH (W/Ref FT4) 1.76 uIU/mL (0.36-3.74); Total Protein 7.5 g/dL (6.4-8.2); Triglyceride 132 mg/dL (<150)
== END 2022-12-22 02:43 | disposition home or self-care (01) ==
PROVIDERS: PCP Nurse Practitioner Family; Visit Provider Nurse Practitioner Family
DX: D64.9 Anemia, unspecified (principal); E03.9 Hypothyroidism, unspecified; E78.5 Hyperlipidemia, unspecified; F32.9 Major depressive disorder, single episode, unspecified; G47.33 Obstructive sleep apnea (adult) (pediatric); I10 Essential (primary) hypertension; K21.9 Gastro-esophageal reflux disease without esophagitis; R73.03 Prediabetes; Z00.00 Encounter for general adult medical examination without abnormal findings
CPT/HCPCS: 36415; 80053; 80061; 85027; 83036; 84443

== ENCOUNTER → 2022-12-29 19:22 | Outpatient (CLI) | payer MEDICARE, SELFPAY ==
--- NOTE | 2022-12-29 13:30 | DI.CT_ITS ---
Exam(s) CT HEAD WO EXAM: CT HEAD WO CLINICAL HISTORY: S/P this AM, taking 325 mg aspirin daily, HEAD INJURY, S09.90XA. TECHNIQUE: Imaging Protocol: Axial computed tomography images with coronal and sagittal reformatted images were created and reviewed COMPARISON: CT CT HEAD WO from 10/24/2018 FINDINGS: Ventricles and Extra axial spaces: Normal in size and morphology for the patient's age. Hemorrhage: None. Cerebral parenchyma: There are areas of decreased attenuation in the white matter most consistent wit h small vessel ischemic disease. No definite acute territorial infarct is seen. Midline shift: None. Brainstem/Cerebellum: Normal. Calvarium: Normal. Visualized Paranasal sinuses/Mastoids: Clear. Soft Tissues: There is soft tissue swelling of the scalp overlying the right frontal bone. IMPRESSION: 1. No acute intracranial process. 2. Soft tissue swelling of the scalp overlying the right frontal bone. RADIATION DOSE DELIVERED: 738.71mGy.cm Total DLP DATA REPOSITORY: All CT scans at this facility are submitted to the National Radiology Data Registry (NRDR) Dose Index Registry (DIR) with the [employer] ([employer]). RADIATION OPTIMIZATION: All CT scans at this facility use at least one of these dose optimization te chniques: automated exposure control; mA and/or kV adjustment per patient size (includes targeted exa ms where dose is matched to clinical indication); or iterative reconstruction.
== END ==
PROVIDERS: PCP Nurse Practitioner Family; Visit Provider Nurse Practitioner Family
DX: S09.90XA Unspecified injury of head, initial encounter (principal); R22.0 Localized swelling, mass and lump, head; X58.XXXA Exposure to other specified factors, initial encounter
CPT/HCPCS: 70450

== ENCOUNTER → 2023-02-01 10:35 | Outpatient (BNVA) | payer MEDICARE, SELFPAY | PROVIDERS: PCP Nurse Practitioner Family; Referring Provider Nurse Practitioner Family; Visit Provider Student in an Organized Health Care Education/Training Program | DX: M18.11 Unilateral primary osteoarthritis of first carpometacarpal joint, right hand (principal); M65.341 Trigger finger, right ring finger; M65.331 Trigger finger, right middle finger | CPT/HCPCS: 20600; J1030 ==

== ENCOUNTER → 2023-07-08 11:00 | Outpatient (BNVA) | payer MEDICARE, SELFPAY | PROVIDERS: PCP Nurse Practitioner Family; Referring Provider Nurse Practitioner Family; Visit Provider Nurse Practitioner Adult Health | DX: G43.009 Migraine without aura, not intractable, without status migrainosus (principal); G43.109 Migraine with aura, not intractable, without status migrainosus | CPT/HCPCS: 99214 ==

== ENCOUNTER → 2023-08-24 03:04 | Outpatient (CLI) | payer MEDICARE, SELFPAY ==
--- NOTE | 2023-08-24 10:14 | DI.RAD_ITS ---
Exam(s) XR SHOULDER RT COMPLETE 2+V EXAM: XR SHOULDER RT COMPLETE 2+V CLINICAL HISTORY: right shoulder pain,m25.511. TECHNIQUE: 2D digital imaging was performed of the right shoulder. Five images were obtained. AP, Grashey, Y-view and axillary views were obtained. COMPARISON: No exams were available for comparison FINDINGS: BONES: No acute fracture is present. No bony destructive lesion is seen. Sternal wires are in place. JOINTS: No dislocation present. Postsurgical changes are seen at the acromioclavicular joint. There is a small spur at the lateral aspect of the acromion. The glenohumeral joint is well maintained. SOFT TISSUE: The visualized lungs are clear. IMPRESSION: 1. Postsurgical changes at the acromioclavicular joint. 2. Small acromial spur. DATA REPOSITORY: RADIATION DOSE DELIVERED:
== END ==
PROVIDERS: PCP Nurse Practitioner Family; Visit Provider Nurse Practitioner Family
DX: M25.511 Pain in right shoulder (principal)
CPT/HCPCS: 73030

== ENCOUNTER 2023-12-20 15:43 | Outpatient (REF) | payer MEDICARE, SELFPAY | END 2023-12-20 15:44 | disposition home or self-care (01) | LOC: LBN 15:43 | PROVIDERS: PCP Nurse Practitioner Family; Visit Provider Physician Assistant | DX: J02.9 Acute pharyngitis, unspecified (principal); R68.89 Other general symptoms and signs | CPT/HCPCS: 87070 ==

== ENCOUNTER 2024-02-11 00:53 | Outpatient (CLI) | payer MEDICARE, SELFPAY ==
--- NOTE | 2024-02-11 08:30 | DI.MAMMO_ITS ---
Exam(s) MAMMO SCREENING EXAM: MAMMO SCREENING CLINICAL HISTORY: screening,z12.39 TECHNIQUE: Mammograms were interpreted according to the usual protocol including computer analysis w [employer] CAD system, tomosynthesis and C-view imaging. COMPARISON: 2014 through 2022 FINDINGS: The breasts are composed of scattered fibroglandular densities, Breast Density category B. No suspicious masses or suspicious microcalcifications are seen. Biopsy marker clip again noted in r ight breast. No skin thickening or abnormal axillary lymph nodes are seen. There has been no significant change from prior exams. IMPRESSION: BI-RADS Category 1, Negative mammogram Yearly screening mammography is recommended. Breast Density - Category B, scattered fibroglandular densities. A negative radiographic report should not delay biopsy if a dominant or clinically suspicious mass is present. Up to ten percent of cancers are not identified on mammography. A negative report may reinforce clinical impression. Adenosis and dense breasts may obscure an underlying neoplasm. False positive reports average 6 to 10%. Patient will receive a letter notifying them of these results.
== END 2024-02-11 01:13 ==
LOC: DI 00:54
PROVIDERS: PCP Nurse Practitioner Family; Visit Provider Nurse Practitioner Family
DX: Z12.31 Encounter for screening mammogram for malignant neoplasm of breast (principal)
CPT/HCPCS: 77063; 77067

== ENCOUNTER 2024-02-22 04:51 | Outpatient (CLI) | payer MEDICARE, SELFPAY ==
[2024-02-22 09:33] LABS: HCT 42.5 % (36.0-46.0); HGB 13.8 g/dL (11.2-15.7); MCH 29.1 pg (27.0-33.0); MCHC 32.5 % (32.0-36.0); MCV 90 fL (80-95); MPV 9.2 fL (8.0-11.0); Platelet Count 202 10^3/uL (130-400); RBC 4.75 10^6/uL (3.93-5.22); RDW 13.2 % (11.7-14.6); RDW-SD 42.9 fL; WBC 6.78 10^3/uL (4.4-10.8)
[2024-02-22 09:51] LABS: Hemoglobin A1C 5.8 % (<5.7)
[2024-02-22 10:17] LABS: ALT 28 U/L (14-59); AST 22 U/L (15-37); Albumin 3.6 g/dL (3.4-5.0); Alkaline Phosphatase 108 U/L (46-116); Anion Gap 6.5 mmol/L (3-11); BUN 15 mg/dL (7-18); Bilirubin, Total 0.55 mg/dL (0.2-1.0); CO2 31.5 mmol/L (21.0-32.0); CREATININE 0.9 mg/dL (0.55-1.02); Calcium 9.3 mg/dL (8.5-10.1); Calculated LDL 66 mg/dL (<100); Chloride 105 mmol/L (98-107); Cholesterol 160 mg/dL (<200); Estimated GFR 66.67 (mL/min/1.73m2); Glucose 100 mg/dL (74-106); HDL Cholesterol 65 mg/dL (40-60); Sodium 143 mmol/L (136-145); TSH (W/Ref FT4) 1.74 uIU/mL (0.36-3.74); Total Protein 7.9 g/dL (6.4-8.2); Triglyceride 148 mg/dL (<150)
== END 2024-02-22 04:52 | disposition home or self-care (01) ==
LOC: LBO 04:51
PROVIDERS: PCP Nurse Practitioner Family; Visit Provider Nurse Practitioner Family
DX: F32.9 Major depressive disorder, single episode, unspecified (principal); Z00.00 Encounter for general adult medical examination without abnormal findings; I10 Essential (primary) hypertension; E78.5 Hyperlipidemia, unspecified; R73.03 Prediabetes; E03.9 Hypothyroidism, unspecified; K21.9 Gastro-esophageal reflux disease without esophagitis; D64.9 Anemia, unspecified; G47.33 Obstructive sleep apnea (adult) (pediatric)
CPT/HCPCS: 36415; 80053; 80061; 85027; 83036; 84443

== ENCOUNTER → 2024-04-27 09:43 | Outpatient (BNVA) | payer MEDICARE, SELFPAY | PROVIDERS: PCP Nurse Practitioner Family; Referring Provider Nurse Practitioner Family; Visit Provider Physical Therapy Assistant | DX: Z12.11 Encounter for screening for malignant neoplasm of colon (principal); Z80.0 Family history of malignant neoplasm of digestive organs ==

== ENCOUNTER 2024-05-08 09:17 | Day surgery (SDC) | payer MEDICARE, SELFPAY ==
--- NOTE | 2024-05-07 18:16 | PDOC.DSDIS_ITS ---
Date of service: 05/08/24 Discharge Plan Disposition Patient Disposition: Home Condition: Good Discharge Details Reason For Visit: screening colonoscopy Attending Provider: Won Abrams Primary Care Provider: Luz Elena Avila Home Meds and New Rx's Prescriptions: Continued omega 4-ssu-dqu-fish oil [Fish Oil] 60-90-500 mg capsule 1 cap PO DAILY lamotrigine 200 mg tablet 100 mg PO HS benzonatate 100 mg capsule 100 - 200 mg PO TID PRN (Reason: cough) Qty: 60 0RF Rx Instructions: Take 1-2 capsules by mouth three times a day as needed for cough Women's One Daily 1 EACH tablet 1 ea PO DAILY BiPAP Rx Instructions: sleep apnea, [facility] sleep lab acetaminophen [Tylenol Extra Strength] 500 mg tablet 500 mg PO Q6H PRN (Reason: fever or pain) Qty: 90 4RF aspirin 325 mg tablet 325 mg PO DAILY Qty: 90 4RF cholecalciferol (vitamin D3) 25 mcg (1,000 unit) capsule 1,000 unit PO DAILY Qty: 90 4RF gabapentin 100 mg capsule See Rx Instructions PO .COMPLEX Qty: 90 3RF Rx Instructions: Take 100 mg at bedtime every night. Take an additional 100 mg daily as needed for headaches. atorvastatin 40 mg tablet 40 mg PO HS Qty: 90 3RF furosemide 20 mg tablet 20 mg PO DAILY Qty: 90 3RF levothyroxine 75 mcg tablet 75 mcg PO DAILY Qty: 90 3RF losartan 25 mg tablet 25 mg PO BID Qty: 180 4RF metoprolol succinate 50 mg tablet extended release 24 hr 50 mg PO DAILY Qty: 90 3RF omeprazole 40 mg capsule,delayed release(DR/EC) See Rx Instructions .ROUTE .COMPLEX Qty: 90 3RF Dose Instruction: TAKE 1 CAPSULE BY MOUTH IN THE MORNING Rx Instructions: TAKE 1 CAPSULE BY MOUTH IN THE MORNING desvenlafaxine succinate 50 mg tablet extended release 24 hr 50 mg PO DAILY Discontinued bisacodyl [Dulcolax (bisacodyl)] 5 mg tablet,delayed release (DR/EC) 5 mg PO ONCE Qty: 4 0RF Rx Instructions: Take per colonoscopy instructions provided by ordering providers office polyethylene glycol 3350 17 gram/dose powder 17 g PO ONCE Qty: 238 0RF Rx Instructions: Take per colonoscopy instructions provided by ordering providers office Discharge Instructions Additional Instructions: Devyn was pleasure meeting you today, and I hope you are comfortable throughout the colonoscopy. Your prep was excellent negative everything fine. The colonoscopy today was negative. Based on your family history, I recommend a 5- year interval for your next screening colonoscopy. 1. If tolerated, consume a soft, low fiber diet for 1-2 days. 2[address] Do not drive, drink alcohol, operate machinery, make critical decisions, or do activities that require coordination or balance for 24 hours. 3. Because air was put into your colon during the procedure, expelling air from your rectum (passing gas or farting) is normal. 4. You may not have a bowel movement for 1-3 days because of the colonoscopy prep. This is normal. 5. Go directly to the emergency room if you notice any of the following: Develop chills (warm to touch), or if you have a thermometer and your temperature is above 101 Difficulty breathing or difficultly swallowing Persistent vomiting Severe abdominal pain, other than gas cramps Severe chest pain Black, tarry stools Any bleeding ? exceeding one tablespoon 6. Call your physician if the site where your intravenous was started becomes red, swollen, painful, and warm to touch. 7. Your physician has reviewed your pre-procedure medications. Please continue to take those medications as previously ordered. You will be given specific information/education regarding any changes to your medications before leaving. Activity:: Activity as Tolerated Diet:: As Tolerated Discharge Orders Discharge Orders: Discharge Order (Routine); Ordered 05/07/24 Ordered By: Won Abrams DS: Diagnosis Discharge Diagnosis (1) Encounter for screening colonoscopy: Status: Acute Asessment and Plan: Negative screening colonoscopy; based on family history 5-year follow-up for next colonoscopy
--- NOTE | 2024-05-07 18:19 | W.COLOREPORT ---
Date of service: 05/08/24 Time of Service: 11:50 Colonoscopy Report Date of procedure: 05/08/24 Pre-op diagnosis general: screening colonoscopy Post-op diagnosis procedure note: other (Negative screening colonoscopy) Procedure: colonoscopy Surgeon: Won Abrams Anesthesia Type: General:No Airway Estimated blood loss (mL): 0 Pathology: none sent Complications: None Disposition: same day Indications: Rosalba is a 73 year old woman with a fmaily histoty of colon cancer who needs her next screening colonoscopy Prep: Miralax/Dulcolax Procedure Start Time: 11:26 Procedure End Time: 11:45 Retraction Time: 8 Findings: Negative screening colonoscopy Procedure Description: After the induction of anesthesia, and with the patient in left lateral decubitus position, I began by performing an external anorectal exam.? Perineum and skin were normal, as was the anal verge.? There was no evidence of external hemorrhoids.? Next, I performed a digital rectal exam.? I did not appreciate any abnormal findings.? Next, I advanced a colonoscope into the rectal vault.? I performed retroflexion.? This appeared normal.? Using insufflation, I then advanced the colonoscope beyond the rectal folds and into the sigmoid colon before advancing towards the cecum.? The quality of the prep was excellent.? The scope was noted to be in the cecum by identification of the ileocecal valve and appendiceal orifice.? I then began withdrawing the colonoscope using repeated irrigation as necessary for full evaluation of the colonic mucosa. ?Once the scope was withdrawn to the level of the rectum, great care was taken to examine portions of the rectal folds.? I saw no signs of tumors, polyps, or any other pathology. Finally, the scope was withdrawn and the patient was brought to the same-day surgery recovery unit as the anesthetic wore off. ?The findings and instructions were shared with the patient prior to discharge. [place] Bowel Prep [place] Bowel Prep Right Colon: 3 Left Colon: 3 Transverse Colon: 3 Total Score: 9
[2024-05-08 09:20] VITALS: BP 169/79; PULSE 76; RESP 16; TEMP 36.6; O2SAT 96
[2024-05-08] MEDS: Lactated Ringers 1,000 ML 80 ML IV (10:01)
--- NOTE | 2024-05-08 10:39 | W.ANESPRE ---
General Info Date of Service Date Performed: 05/08/24 Height: 5 ft 4 in Weight: 86.6 kg Body Mass Index (BMI): 32.8 Surgical Procedure: Operation Date: 05/08/24 10:50 Proposed Procedure Side Surgeon gaviota Abrams MD Meds Allergies and Home Medications Allergies Allergy/AdvReac Type Severity Reaction Status Date / Time ciprofloxacin HCl (From Allergy Severe angioedema Verified 05/08/24 09:39 Cipro) lisinopril Allergy Severe angioedema Verified 05/08/24 09:39 modafinil (From Provigil) AdvReac Intermediate increased Verified 05/08/24 09:39 agitation,hallucinations, insomnia prednisone AdvReac Intermediate SKIN, Verified 05/08/24 09:39 MUSCLE CRAWL Home Medication ?Medication ?Instructions ?Recorded [id number]-yiwf-minerals 27 1 ea PO DAILY 07/16/12 mg-0.4 mg tablet (Women's One Daily) Bipap 07/26/14 acetaminophen 500 mg tablet 500 mg PO Q6H PRN fever or pain 05/30/21 (Tylenol Extra Strength) #90 tabs aspirin 325 mg tablet 325 mg PO DAILY #90 tabs 05/30/21 cholecalciferol (vitamin D3) 25 1,000 unit PO DAILY #90 caps 05/30/21 mcg (1,000 unit) capsule lamotrigine 200 mg tablet 100 mg PO HS 01/30/22 omega 8-waa-poo-fish oil 60 mg-90 1 cap PO DAILY 09/01/22 mg-500 mg capsule (Fish Oil) gabapentin 100 mg capsule See Rx Instructions PO .COMPLEX 09/07/23 #90 caps atorvastatin 40 mg tablet 40 mg PO HS #90 tabs 10/04/23 furosemide 20 mg tablet 20 mg PO DAILY #90 tabs 10/04/23 levothyroxine 75 mcg tablet 75 mcg PO DAILY #90 tabs 10/04/23 losartan 25 mg tablet 25 mg PO BID #180 tabs 10/04/23 metoprolol succinate 50 mg 50 mg PO DAILY #90 tabs 10/04/23 tablet,extended release 24 hr omeprazole 40 mg capsule,delayed See Rx Instructions .Route 10/04/23 release .COMPLEX #90 caps benzonatate 100 mg capsule 100 - 200 mg (1 - 2 x 100 mg) PO 12/28/23 TID PRN cough #60 caps desvenlafaxine succinate 50 mg 50 mg PO DAILY Depression 05/04/24 tablet,extended release 24 hr Current Visit Medications: Current Medications Generic Name Dose Route Start Last Admin Trade Name Murray PRN Reason Stop Dose Admin Ringer's Solution 1,000 mls @ 80 mls/hr 05/08/24 09:00 05/08/24 10:01 IV 06/07/24 08:59 80 mls/hr INFUSION FARZANA Administration IV Miscellaneous Supplies 1 each 05/08/24 06:00 Iv Access IV 06/04/24 23:59 DIRECTED FARZANA Ondansetron HCl 4 mg 05/07/24 18:20 Ondansetron 4 Mg/2 Ml Vial IVP 06/06/24 18:19 Q4H PRN PRN Nausea / Vomiting Sodium Chloride 0 ml 05/08/24 06:00 Normal Saline Flush 10 Ml Syr IV 06/04/24 23:59 PRN PRN Sodium Chloride 0 ml 05/08/24 06:00 Normal Saline 10 Ml Vial IJ 06/04/24 23:59 DIRECTED PRN Sterile Water 0 ml 05/08/24 06:00 Water,Injection,Sterile 10 Ml Vial IJ 06/04/24 23:59 DIRECTED PRN PFSH Active Problems Active Problems: Problem Status Onset Code Encounter for screening colonoscopy Acute Z12.11 ADHD (attention deficit hyperactivity disorder) Acute F90.9 Right shoulder pain Acute M25.511 Migraine headache with aura Acute G43.109 Migraine headache without aura Acute G43.009 Trigger finger, right middle finger Acute M65.331 Arthritis of carpometacarpal (CMC) joint of right thumb Acute M18.11 Trigger finger of right hand Acute M65.30 Stroke Chronic I63.9 Left temporal headache Acute R51.9 Headache Acute R51.9 Screening breast examination Acute Z12.39 Facial asymmetry Acute Q67.0 Prediabetes Acute R73.03 Restless leg syndrome Acute G25.81 Left rotator cuff tear Acute M75.102 Anemia Chronic D64.9 Obstructive sleep apnea syndrome Chronic G47.33 Hypothyroidism Chronic E03.9 Hyperlipidemia Chronic E78.5 Gastroesophageal reflux disease Chronic K21.9 Essential hypertension Chronic 08/14 I10 Depressive disorder Chronic F32.9 Medical History Medical History Falls Gastritis and duodenitis (~03/22/18) Osteoarthritis of knee (02/28/13) 08/23; RIGHT KNEE REPLACEMENT; [facility] Nevus, non-neoplastic (06/09/08) atypical mole-perianal (mild atypica) Mitral valve regurgitation systolic murmur; Juan; 04/19 echo severe MR--Mitral valve repair and CABG at [facility] 12/18 Memory loss (08/21/14) went to [facility] - was normal Incomplete tear of right rotator cuff (11/01/15) Family history of colon cancer colon cancer-father ASCVD (arteriosclerotic cardiovascular disease) CABG x1 and mitral valve repair at [facility] 12/18 GERD (gastroesophageal reflux disease) Hypothyroidism ASCVD (arteriosclerotic cardiovascular disease) Essential hypertension SARA (obstructive sleep apnea) Surgical History Surgical History History of mitral valve repair 2007 History of bilateral ligation of fallopian tubes Status post total knee replacement Ligation of fallopian tube (~1975) BSO Replacement of total knee joint 08/23; [facility] (RIGHT) Meniscectomy (~2012) Colonoscopy - MAC (09/07/17) ANKLE REPAIR (~01/2009) Tobacco Smoking/Tobacco Use Status: Former Tobacco Use Passive smoking exposure: No Second hand exposure: Yes Alcohol Alcohol Intake: never Substance Use Substance use: Never Substance use type: does not use Vital Signs and Lab Results Vital Signs Most Recent Vital Signs in EMR: Most Recent Vital Signs Temp Pulse Resp BP Pulse Ox 36.6 C 76 16 169/79 H 96 05/08/24 09:20 05/08/24 09:20 05/08/24 09:20 05/08/24 09:20 05/08/24 09:20 Lab Results Blood Type / Crossmatch: No Data to Display Complete Blood Count: No Data to Display Complete Metabolic Panel: No Data to Display Liver Function Panel: No Data to Display Coagulation Panel: No Data to Display Cardiac Panel: No Data to Display Arterial Blood Gas: No Data to Display Venous Blood Gas: No Data to Display Pancreas Panel: No Data to Display Thyroid Panel: No Data to Display Infectious Disease: No Data to Display Blood Cultures: No Data to Display Toxicology Panel: No Data to Display Imaging and Studies Imaging and Studies Study information below may be from another EMR and interpreted by another provider. Please see original notes in EMR for more complete details. EKG Summary: Conclusion Sinus rhythm...normal P axis, V-rate 60- 99 Inferior infarct, old...Q >35mS, II III aVF. Echocardiogram Summary: Date of study: 04/21/2016 Transthoracic Echocardiography M-mode, complete 2D, complete spectral Doppler, and color Doppler *STUDY CONCLUSIONS* Summary: 1. Left ventricle: The cavity size was normal. Wall thickness was increased in a pattern of mild LVH. Systolic function was normal. The estimated ejection fraction was 60-65%. Wall motion was normal; there were no regional wall motion abnormalities. Findings consistent with diastolic dysfunction. Doppler parameters are consistent with high ventricular filling pressure. 2. Left atrium: The atrium was mildly to moderately dilated. 3. Right ventricle: The cavity size was normal. Systolic function was normal. 4. Right atrium: The atrium was mildly dilated. 5. Pulmonary arteries: Pulmonary systolic pressure was within the normal range, in the range of 30mm Hg to 35mm Hg. Carotid Artery Summary:: 09/2022:MPRESSION: No evidence for hemodynamically significant carotid stenosis. Anesthesia Assessment and Plan Anesthesia History Personal History: No History of Anesthesia Complications Family History: No Family History of Anesthesia Complications Exercise Tolerance Exercise Tolerance: Metabolic Equivalents>4 Pertinent Negatives Pertinent Negatives: No Symptoms of GERD Cardiac & Pulmonary Exam Cardiac Exam: Normal S1/S2 Heart Sounds Pulmonary Exam: Clear Bilateral Breath Sounds Implantable Cardiac Device Does patient have a Pacemaker or an ICD?: No Airway Exam Known Difficult Airway: No Mallampati Class: 1 Mouth Opening: Normal (> 3cm) Thyromental Distance: Greater than 3 cm Neck Range of Motion: Full ROM Neck Circumference: Normal Teeth Condition: Normal Dentition ASA Classification ASA Score: ASA 3 Emergency Case?: No NPO Status NPO Status: NPO Clears >2 hours, Solids >8 hours Anesthesia Plan Resuscitation Status: Full Code Anesthesia Technique: General Anesthesia Airway Planned: Natural Airway Monitors Used: Standard Monitors
[2024-05-08 10:52] VITALS: BMI 32.8
[2024-05-08 11:50] VITALS: BP 124/61; PULSE 66; RESP 16; TEMP 36; O2SAT 98
[2024-05-08 12:15] VITALS: BP 127/47; PULSE 62; RESP 18; TEMP 36.4; O2SAT 98
--- NOTE | 2024-05-08 12:41 | W.ANESPOSTOP ---
Postoperative Evaluation Date, Time and Location Date Performed: 05/08/24 Time Performed: 11:49 Patient Location: Day Surgery Unit Vital Signs Most Recent Imported Vital Signs: Most Recent Vital Signs Temp Pulse Resp BP Pulse Ox 36.4 C L 62 18 127/47 L 98 05/08/24 12:15 05/08/24 12:15 05/08/24 12:15 05/08/24 12:15 05/08/24 12:15 Pain Score Most Recent Pain Score: Most Recent Pain Score Pain Level 0 05/08/24 12:15 Assessment Mental Status: Awake (Alert & Oriented to Patient Baseline) Airway and Respiratory Function: Patent airway with normal (patient baseline) respiratory exam Cardiovascular Function: Hemodynamically Stable Hydration Status: Adequately Hydrated Nausea & Vomiting: No Nausea or Vomiting Pain: Pt. Denies Any Pain Peripheral Nerve Block: Patient did not receive a nerve block
== END 2024-05-08 12:32 | disposition home or self-care (01) ==
LOC: SUR 09:18
PROVIDERS: PCP Nurse Practitioner Family; Visit Provider Surgery
PROC: 0DJD8ZZ Inspection of Lower Intestinal Tract, Via Natural or Artificial Opening Endoscopic (ICD-10-PCS; CPT 45378; principal; 2024-05-08 10:45)
DX: Z12.11 Encounter for screening for malignant neoplasm of colon (principal); I10 Essential (primary) hypertension; Z80.0 Family history of malignant neoplasm of digestive organs
CPT/HCPCS: G0105; J2003; J2704

== ENCOUNTER → 2024-07-06 10:54 | Outpatient (BNVA) | payer MEDICARE, SELFPAY | PROVIDERS: PCP Nurse Practitioner Family; Visit Provider Nurse Practitioner Adult Health | DX: G43.009 Migraine without aura, not intractable, without status migrainosus (principal); G43.109 Migraine with aura, not intractable, without status migrainosus | CPT/HCPCS: 99214 ==

== ENCOUNTER 2024-07-23 15:08 | Emergency (ER) | payer MEDICARE, SELFPAY ==
[2024-07-23] VITALS (13 sets, daily range): BP systolic 135–178; BP diastolic 60–81; PULSE 65–69; RESP 15–23; TEMP 36.6–37; O2SAT 93–97
--- NOTE | 2024-07-23 15:30 | RT.EKG_ITS ---
APPROVED REPORT Exam: Resting ECG Reason for Exam: sob Patient Location: E HR:65 bpm ECG Measurements Heart Rate 65 AXIS NC 187 P 56 QRSd 102 QRS 1 QT 387 T 38 QTc 401 Conclusion Sinus rhythm...normal P axis, V-rate 60- 99 Ventricular premature complex...V complex w/ short R-R interval
--- NOTE | 2024-07-23 15:30 | DI.RAD_ITS ---
Exam(s) XR CHEST 2V PA LATERAL EXAM: XR CHEST 2V PA LATERAL CLINICAL HISTORY: sob and cough. TECHNIQUE: 2D digital imaging was performed. COMPARISON: No exams were available for comparison FINDINGS: 2 views: There is sternotomy wires. Heart size is normal. The mediastinum is not widened. Right lung is clear. There is scarring or platelike atelectasis in the lateral left lung base. No o bvious pleural effusions. No pulmonary edema. IMPRESSION: Previous sternotomy. Scarring in the lateral left lung base. DATA REPOSITORY: RADIATION DOSE DELIVERED:
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
[2024-07-23 16:23] LABS: Abs Immature Grans 0.03 10^3/uL (0.0-0.06); Absolute Basophil Count 0.04 10^3/uL (0.0-0.2); Absolute Lymphocyte Count 1.78 10^3/uL (1.2-3.4); Absolute Monocyte Count 0.82 10^3/uL (0.1-0.8); Basophils % 0.5 %; Eosinophils % 1.3 %; HCT 42.4 % (36.0-46.0); HGB 13.7 g/dL (11.2-15.7); Immature Grans % 0.4 %; Lymphocytes % 22.3 %; MCH 29.1 pg (27.0-33.0); MCHC 32.3 % (32.0-36.0); MCV 90 fL (80-95); Monocytes % 10.3 %; Neutrophils % 65.2 %; Platelet Count 143 10^3/uL (130-400); RBC 4.71 10^6/uL (3.93-5.22); RDW-SD 43.1 fL; WBC 7.97 10^3/uL (4.4-10.8)
[2024-07-23 16:45] LABS: ALT 35 U/L (14-59); AST 23 U/L (15-37); Albumin 3.4 g/dL (3.4-5.0); Alkaline Phosphatase 124 U/L (46-116); Anion Gap 7.2 mmol/L (3-11); BUN 13 mg/dL (7-18); Bilirubin, Total 0.5 mg/dL (0.2-1.0); CO2 31.8 mmol/L (21.0-32.0); CREATININE 0.8 mg/dL (0.55-1.02); Calcium 8.7 mg/dL (8.5-10.1); Chloride 103 mmol/L (98-107); Estimated GFR 76.79 (mL/min/1.73m2); Glucose 107 mg/dL (74-106); NT-proBNP 399 pg/mL (<300); Potassium 4.3 mmol/L (3.5-5.1); Sodium 142 mmol/L (136-145); Total Protein 6.8 g/dL (6.4-8.2); Troponin I 6 ng/L (<or=51)
--- NOTE | 2024-07-23 17:18 | DI.VRAD_ITS ---
PROCEDURE INFORMATION: Exam: XR Chest Exam date and time: 07/23/2024 4:49 PM Age: 73 years old Clinical indication: Cough and shortness of breath TECHNIQUE: Imaging protocol: Radiologic exam of the chest. Views: 2 views. COMPARISON: CT CHEST/ABD/PEL W 02/11/2021 1:47 PM FINDINGS: Tubes, catheters and devices: There are sternal wires consistent with previous sternotomy incision. Lungs: There are diffuse interstitial infiltrates present. This may represent cardiogenic versus noncardiogenic edema. An acute inflammatory process and/or infectious process/pneumonia are not excluded. The lungs are hyperinflated, consistent with underlying small airways disease. Pleural spaces: Blunting of the posterior costophrenic angles consistent with scarring versus mild pleural effusions. Heart/Mediastinum: Unremarkable. No cardiomegaly. Vasculature: The aorta is calcified tortuous. Bones/joints: The skeletal structures and soft tissues show no evidence of fracture or other acute processes. Soft tissues: The soft tissues of the extrathoracic region are unremarkable. IMPRESSION: 1. There are diffuse interstitial infiltrates present. This may represent cardiogenic versus noncardiogenic edema. An acute inflammatory process and/or infectious process/pneumonia are not excluded. 2. The lungs are hyperinflated, consistent with underlying small airways disease. 3. Blunting of the posterior costophrenic angles consistent with scarring versus mild pleural effusions. Dictated and Authenticated by: Eugenio Chris MD. Orderin Racquel Rose MD
[2024-07-23 17:20] LABS: COVID-19 PCR Negative (Negative); Influenza A PCR Negative (Negative); Influenza B PCR Negative (Negative); RSV PCR Negative (Negative)
[2024-07-23 17:27] LABS: Source Nasopharynx
[2024-07-23] MEDS: Azithromycin 250 MG TAB 500 MG PO (17:35)
[2024-07-23] MEDS: Amoxicillin 875/Clav. 125 TAB PO (17:35)
== END 2024-07-23 17:41 | disposition home or self-care (01) ==
PROVIDERS: Emergency Provider Student in an Organized Health Care Education/Training Program; PCP Nurse Practitioner Family
DX: J18.9 Pneumonia, unspecified organism (principal); R05.9 Cough, unspecified; Z87.891 Personal history of nicotine dependence
CPT/HCPCS: 36415; 80053; 87637; 93005; 99285; 71046; 83880; 84484; 85025; 93010; 99284

== ENCOUNTER 2024-09-12 12:22 | Emergency (ER) | payer MEDICARE, SELFPAY ==
--- NOTE | 2024-09-12 12:15 | RT.EKG_ITS ---
APPROVED REPORT Exam: Resting ECG Reason for Exam: HR and BP Patient Location: E HR:63 bpm ECG Measurements Heart Rate 63 AXIS WY 177 P 53 QRSd 106 QRS -20 QT 415 T 33 QTc 425 Conclusion Sinus rhythm. 63 Normal axis +pvc
[2024-09-12 12:27] VITALS: BP 171/74; PULSE 58; RESP 14; TEMP 36.6; O2SAT 96
[2024-09-12 13:53] LABS: Abs Immature Grans 0.01 10^3/uL (0.0-0.06); Absolute Basophil Count 0.04 10^3/uL (0.0-0.2); Absolute Eosinophil Count 0.16 10^3/uL (0.0-0.7); Absolute Lymphocyte Count 3.31 10^3/uL (1.2-3.4); Absolute Neutrophil Count 3.66 10^3/uL (1.2-6.7); Basophils % 0.5 %; Eosinophils % 2.1 %; HGB 13.9 g/dL (11.2-15.7); Immature Grans % 0.1 %; Lymphocytes % 42.5 %; MCHC 33.1 % (32.0-36.0); MCV 88 fL (80-95); Monocytes % 7.7 %; Neutrophils % 47.1 %; Platelet Count 162 10^3/uL (130-400); RDW 13.1 % (11.7-14.6); WBC 7.78 10^3/uL (4.4-10.8)
[2024-09-12 14:11] VITALS: BP 167/74; PULSE 64; RESP 18; O2SAT 97
[2024-09-12 14:15] LABS: ALT 32 U/L (14-59); AST 37 U/L (15-37); Albumin 3.5 g/dL (3.4-5.0); Alkaline Phosphatase 118 U/L (46-116); Anion Gap 8.5 mmol/L (3-11); BUN 17 mg/dL (7-18); Bilirubin, Total 0.5 mg/dL (0.2-1.0); CO2 28.5 mmol/L (21.0-32.0); CREATININE 0.7 mg/dL (0.55-1.02); Chloride 104 mmol/L (98-107); Estimated GFR 90.14 (mL/min/1.73m2); Glucose 133 mg/dL (74-106); Lipase 53 U/L (<78); Magnesium 2.1 mg/dL (1.8-2.4); NT-proBNP 184 pg/mL (<300); Potassium 4.5 mmol/L (3.5-5.1); Sodium 141 mmol/L (136-145); TSH (W/Ref FT4) 2.54 uIU/mL (0.36-3.74); Total Protein 7.1 g/dL (6.4-8.2)
[2024-09-12 15:03] VITALS: BP 186/95; PULSE 60; RESP 18; O2SAT 97
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
== END 2024-09-12 15:04 | disposition home or self-care (01) ==
PROVIDERS: Emergency Provider Emergency Medicine; PCP Nurse Practitioner Family
DX: R00.1 Bradycardia, unspecified (principal); I10 Essential (primary) hypertension; E78.5 Hyperlipidemia, unspecified; E03.9 Hypothyroidism, unspecified; I25.10 Atherosclerotic heart disease of native coronary artery without angina pectoris; Z79.82 Long term (current) use of aspirin; Z87.891 Personal history of nicotine dependence
CPT/HCPCS: 36415; 80053; 83690; 93005; 99284; 83735; 83880; 84443; 85025; 93010

== ENCOUNTER → 2024-10-30 08:12 | Outpatient (BNVA) | payer MEDICARE, SELFPAY | PROVIDERS: PCP Nurse Practitioner Family; Referring Provider Nurse Practitioner Family; Visit Provider Podiatrist | DX: G25.81 Restless legs syndrome (principal); G62.9 Polyneuropathy, unspecified; R26.89 Other abnormalities of gait and mobility; I73.89 Other specified peripheral vascular diseases; I87.2 Venous insufficiency (chronic) (peripheral); R60.0 Localized edema | CPT/HCPCS: 99214; 93922 ×2 ==

== ENCOUNTER 2024-12-04 11:54 | Emergency (ER) | payer MEDICARE, SELFPAY ==
[2024-12-04] VITALS (17 sets, daily range): BP systolic 144–176; BP diastolic 65–125; PULSE 59–83; RESP 15–25; TEMP 37.4; O2SAT 95–97
--- NOTE | 2024-12-04 12:00 | RT.EKG_ITS ---
APPROVED REPORT Exam: Resting ECG Reason for Exam: chest pressure Patient Location: E HR:69 bpm ECG Measurements Heart Rate 69 AXIS CA 197 P 45 QRSd 108 QRS -21 QT 424 T 29 QTc 432 Conclusion Sinus rhythm...normal P axis, V-rate 60- 99 Multiple ventricular premature complexes...V complexes w/ short R-R intervls Inferior infarct, old...Q >35mS, II III aVF No Occlusion ME
--- NOTE | 2024-12-04 12:00 | DI.RAD_ITS ---
Exam(s) XR PORTABLE CHEST AP EXAM: XR PORTABLE CHEST AP CLINICAL HISTORY: Chest pain TECHNIQUE: 2D digital imaging was performed of the chest. One image was obtained. An AP view was obtained. COMPARISON: CR,XR XR CHEST 2V PA LATERAL from 07/23/2024 FINDINGS: MEDIASTINUM: Normal. HEART: Normal. The patient is status post CABG. PULMONARY VASCULATURE: Normal. LUNGS: There is scarring again seen in the left lower lobe. There are no focal consolidating infiltrates present. PLEURAL SPACE: No pleural effusion or pneumothorax. BONE:Within normal limits for the patient's age. OTHER FINDINGS:Normal. IMPRESSION: There are no focal consolidating infiltrates. DATA REPOSITORY: RADIATION DOSE DELIVERED:
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
[2024-12-04 12:23] LABS: Abs Immature Grans 0.02 10^3/uL (0.0-0.06); HCT 40.5 % (36.0-46.0); HGB 13.3 g/dL (11.2-15.7); Immature Grans % 0.3 %; MCH 28.7 pg (27.0-33.0); MCHC 32.8 % (32.0-36.0); MCV 87 fL (80-95); MPV 9.3 fL (8.0-11.0); Platelet Count 181 10^3/uL (130-400); RBC 4.64 10^6/uL (3.93-5.22); RDW 13.2 % (11.7-14.6); RDW-SD 42.0 fL; WBC 7.11 10^3/uL (4.4-10.8)
[2024-12-04 12:55] LABS: D-Dimer 525 ng/mlFEU (<500)
[2024-12-04 13:02] LABS: ALT 34 U/L (14-59); AST 25 U/L (15-37); Albumin 3.6 g/dL (3.4-5.0); Alkaline Phosphatase 92 U/L (46-116); Anion Gap 9.5 mmol/L (3-11); BUN 11 mg/dL (7-18); Bilirubin, Total 0.4 mg/dL (0.2-1.0); CO2 28.5 mmol/L (21.0-32.0); Calcium 9.1 mg/dL (8.5-10.1); Chloride 104 mmol/L (98-107); Estimated GFR 76.79 (mL/min/1.73m2); Glucose 122 mg/dL (74-106); Lipase 54 U/L (<78); Magnesium 2.3 mg/dL (1.8-2.4); Potassium 3.9 mmol/L (3.5-5.1); Sodium 142 mmol/L (136-145); Total Protein 6.9 g/dL (6.4-8.2); Troponin I 6 ng/L (<or=51)
[2024-12-04 13:38] LABS: Troponin I 6 ng/L (<or=51)
--- NOTE | 2024-12-04 13:45 | DI.CT_ITS ---
Exam(s) CT THORAX ABD/PEL CTA EXAM: CT THORAX ABD/PEL CTA CLINICAL HISTORY: Chest pain history of aneurysm. TECHNIQUE: Imaging Protocol: Axial computed tomography images with coronal and sagittal reformatted images were created and reviewed CONTRAST MATERIAL: Intravenous: Omnipaque 350 Contrast volume:100 ml Oral: None COMPARISON: CT CT CHEST/ABD/PEL W from 02/11/2021 CR XR DEXA BONE DENSITY W/WO BJ from 05/01/2022 FINDINGS: CHEST: AORTA: The diameter of the ascending thoracic aorta is upper normal. The diameter of the aortic arch and descending thoracic aorta are within normal limits. There is no evidence of aortic dissection nor pericardial effusion. There is mild dilatation of the infrarenal abdominal aortic aneurysm but with measurement of only 2 cm. Diameters of the common iliac arteries are upper normal at are the external iliac arteries and common femoral arteries and there are no significant aneurysms evident within the internal iliac arteries in the pelvis. There is no significant stenosis at the origin of the renal arteries and although there is some plaque at the origin of the celiac artery, this exhibits only mild stenosis. There is no significant stenosis at the origin of the SMA. The EVY is patent. LUNGS: No infiltrates nor pleural effusions. No significant lung nodules. Some platelike atelectasis noted in both lower lobes lung bases.. No pulmonary emboli seen. MEDIASTINUM: There is no hilar nor mediastinal adenopathy. Visualized thyroid unremarkable. CARDIAC: There are sternotomy wires. Heart size is upper normal. No pericardial effusion. ABDOMEN There is no ascites. LIVER: There are no focal hepatic lesions nor dilatation of intrahepatic ducts. GALLBLADDER/BILIARY: Tiny gallstone noted. No evidence of coli cystitis. No gallbladder distension. CBD is not dilated. PANCREAS: No evidence of pancreatic mass nor dilatation of the pancreatic duct. SPLEEN: Spleen is not enlarged. There are no intrasplenic lesions. ADRENALS: There are no significant adrenal masses. KIDNEYS: No cysts evident. No calculi nor hydronephrosis. No solid renal masses. ABDOMINAL AORTA: See above LYMPH NODES: There is no nxytfvmwluptjsr-rnzf-htfapl adenopathy. No intrapelvic nor inguinal adenopathy. ABDOMINAL WALL: No evidence of significant anterior abdominal wall hernia. GI: There is no evidence of bowel obstruction, free air, nor abscess. PELVIS: LYMPH NODES: There is no intrapelvic nor inguinal adenopathy. GI: No evidence of appendicitis.No evidence of sigmoid diverticulitis. URINARY BLADDER: No calculi nor masses evident REPRODUCTIVE: Uterus and adnexal regions unremarkable. There is no free fluid in the pelvis. OSSEOUS: There is a superior endplate compression fracture of L1 vertebral body with approximately 20 percent height loss. This does not appear acute. No retropulsed cortex at this level. No significant canal stenosis at this level. IMPRESSION: 1. No evidence of significant thoracic aneurysm and no evidence of aortic dissection nor pericardial effusion 2. There is mild fusiform dilatation of the distal abdominal aorta but not above 2 cm diameter also no significant aneurysms nor dissection in the iliac arteries. 3. No significant pulmonary findings. 4. Cholelithiasis noted without evidence of acute cholecystitis. Superior endplate compression fracture of L1 with approximately 20 percent height loss. This was evident on the lateral chromosomal disorders counselor image of a bone density study performed in April 2022. Report called by myself to ER physician 12/04/2024 at 3:48 p.m. RADIATION DOSE DELIVERED: 1,116.5mGy.cm Total DLP DATA REPOSITORY: All CT scans at this facility are submitted to the National Radiology Data Registry (NRDR) Dose Index Registry (DIR) with the [employer] (ACR). RADIATION OPTIMIZATION: All CT scans at this facility use at least one of these dose optimization techniques: automated exposure control; mA and/or kV adjustment per patient size (includes targeted exams where dose is matched to clinical indication); or iterative reconstruction.
[2024-12-04] MEDS: Omnipaque 350 MG/ML 100 ML BTL IJ (15:08)
[2024-12-04] MEDS: Normal Saline Flush 10 ML SYR IVP (15:09)
[2024-12-04] MEDS: Normal Saline - Diluent 50 ML VIAL IJ (15:09)
== END 2024-12-04 16:09 | disposition home or self-care (01) ==
PROVIDERS: Emergency Provider Emergency Medicine; PCP Nurse Practitioner Family
DX: R07.9 Chest pain, unspecified (principal); R06.02 Shortness of breath; Z86.79 Personal history of other diseases of the circulatory system
CPT/HCPCS: 99284; 99285; 36415; 71275; 80053; 83690; 93005; 71045; 74174; 83735; 84484; 85025; 85379; 93010; J3490

== ENCOUNTER → 2025-01-02 08:57 | Outpatient (BNVA) | payer MEDICARE, SELFPAY | PROVIDERS: PCP Nurse Practitioner Family; Referring Provider Nurse Practitioner Family; Visit Provider Podiatrist | DX: R26.89 Other abnormalities of gait and mobility (principal); G25.81 Restless legs syndrome; G62.9 Polyneuropathy, unspecified; I73.89 Other specified peripheral vascular diseases; I87.2 Venous insufficiency (chronic) (peripheral); R60.0 Localized edema; R29.6 Repeated falls | CPT/HCPCS: 99214 ==

== ENCOUNTER → 2025-02-27 10:14 | Outpatient (BNVA) | payer MEDICARE, SELFPAY | PROVIDERS: PCP Nurse Practitioner Family; Referring Provider Nurse Practitioner Family; Visit Provider Podiatrist | DX: G62.9 Polyneuropathy, unspecified (principal); I73.89 Other specified peripheral vascular diseases; I87.2 Venous insufficiency (chronic) (peripheral); G25.81 Restless legs syndrome; R26.89 Other abnormalities of gait and mobility; R60.0 Localized edema; R29.6 Repeated falls | CPT/HCPCS: 99213 ==